=== PATIENT | male | born 1955 | race Caucasian/White ===

== ENCOUNTER 2024-06-22 08:14 | Day surgery (SDC) | payer OTHER, SELFPAY ==
--- NOTE | 2024-06-10 07:54 | HPS.HSE ---
Family Physician
-
Family Physician: NO INTERVIEW UNKNOWN
Chief Complaint
-
Abnormal stress test. Coronary artery disease.
History of Present Illness
The patient is a 69 year old male presenting today with a history of coronary artery disease. The patient had a Cypher stent placed in the first diagonal branch in 2005 due to obstructive coronary artery disease. A repeat cardiac
catheterization in 2018 demonstrated a widely patent large first diagonal stent and multivessel coronary artery disease with medical therapy recommended. Given his medical history, his routine data warehousing engineer, Dr. Frederick Garibay, suggested in
May 2024 that he undergo a repeat stress test. His stress test on June 06, 2024 revealed a large area of ischemia in the anterolateral segment. With this finding, it is recommended he proceed with left cardiac catheterization for further
assessment. He denies any current complaints today such as chest pain, shortness of breath, nausea, vomiting, diarrhea, lightheadedness, dizziness, cough, sore throat, or fever.
Medical History
Past Medical History
Past Medical History: Reports Other
Additional Past Medical History:
1. Abnormal stress test.
2. Coronary artery disease, status post PCI with Cypher stent to first diagonal 2005; on Aspirin.
3. Hypertension.
4. Dyslipidemia.
5. Sinus tachycardia, pharmacological therapy with Metoprolol Succinate.
4. Non-insulin dependent diabetes.
5. Irritable bowel syndrome with diarrhea.
6. Osteoarthritis, status post right total knee arthroplasty 2021.
7. Degenerative disc disease.
8. Nocturia.
9. Hyperbilirubinemia.
10. Mildly elevated transaminases.
11. Obesity, BMI 35.2.
Past Surgical History: Reports Other
Additional Past Surgical History:
1. PCI with Cypher stent to first diagonal.
2. Cardiac catheterization.
3. Right total knee arthroplasty.
4. Left shoulder surgery.
5. Right knee meniscus repair.
6. Knee bursa excision.
7. Ankle fracture repair.
8. Bilateral inguinal hernia repair.
9. Umbilical hernia repair.
10. Tonsillectomy.
Social History
Tobacco: Non-smoker
Alcohol: None
Living: Other (He lives with his girlfriend Jenny in a 2 story home. )
Family History
Family History: Not pertinent
Allergies / Home Medications
Allergy/Medication List:
Home medications:
1. Amlodipine 10 mg p.o. daily.
2. Aspirin 81 mg p.o. daily.
3. Cetirizine 10 mg p.o. daily as needed.
4. Cholecalciferol 100 mcg p.o. daily.
5. Trulicity 3 mg subcutaneous weekly.
6. Jardiance 25 mg p.o. daily.
7. Glimepiride 4 mg p.o. at noon.
8. Ibuprofen 200-400 mg daily as needed.
9. Vascepa 2 grams p.o. twice a day.
10. Magnesium 2 capsules p.o. twice a day.
11. Metformin 500 mg p.o. every evening.
12. Metoprolol Succinate 100 mg p.o. at bedtime.
13. One a day multivitamin 1 tablet p.o. at noon.
14. Ramipril 10 mg p.o. twice a day.
15. Rosuvastatin 40 mg p.o. daily.
Allergies: Pollen.
Review of Systems
-
A 12 point ROS was completed and negative except as noted: Yes
Physical Exam
Vital Signs
Blood pressure 132/81. Heart rate 86. Respirations 18. Pulse ox 97% on room air.
Height 5 feet, 11 inches. Weight 114.4 kg. BMI 35.2.
Physical Exam
General: Well Developed, Well Nourished and No Apparent Distress
HEENT: NormoCephalic, Moist mucous membranes, Atraumatic and PERRLA
Respiratory: Clear
Cardiac: Regular Rhythm
GI: Soft, Non Tender, Non Distended and Other (Obese. )
Musculoskeletal: Normal Gait & Station
Neuro: AO x 3 and Nonfocal/grossly intact
Laboratory Results
-
DIAGNOSTIC STUDIES as of 06/10/2024: White blood cell count 6.5. Hemoglobin 15.6. Platelet count 178,000. Sodium 140. Potassium 4.6. BUN 12. Creatinine 0.6. Glucose 207. Calcium 9.4. Total bilirubin 2.2. AST 62. ALT 56. Albumin 4.6.
EKG 06/10/2024: Normal sinus rhythm.
Stress test 06/06/2024: Perfusion images are abnormal and consistent with ischemia. The overall test suggests a large area of moderate ischemia in the anterolateral segment. Myocardial flow reverse is abnormal. Coronary artery flow is severely
reduced. The left ventricular ejection fraction is normal (66%) and decreases to 64% with stress. There is mild calcification in the proximal descending aorta, dense calcification throughout the LAD, moderate calcification in the mid-LCx, and mild
calcification in the mid-distal RCA.
Impression/Plan
-
IMPRESSION/PLAN:
1. Abnormal stress test and coronary artery disease: The patient is in need of a left cardiac catheterization with Dr. Papa Lloyd on 06/22/2024. The benefits and risks of the procedure have been explained to the patient. The patient understands
these risks and wishes to proceed. He is aware to continue his Aspirin daily up to and including the day of his procedure.
[2024-06-10 12:18] VITALS: BMI 35.2
[2024-06-10 13:17] LABS: % Basophils 0.8 % (0-2); % Eosinophils 2.9 % (0-6); % Immature Granulocytes 0.6 % (0-0.5); % Lymphocytes 22.5 % (20.5-51.1); % Monocytes 12.4 % (1.7-9.3); % Neutrophils 60.8 % (42.2-75.2); Absolute Basophils 0.1 10^3/uL (0-0.2); Absolute Eosinophils 0.2 10^3/uL (0-0.7); Absolute Lymphocytes 1.5 10^3/uL (1.2-3.4); Absolute Monocytes 0.8 10^3/uL (0.1-0.6); Hematocrit 45.3 % (39.0-52.0); Hemoglobin 15.6 g/dL (13.0-18.0); Mean Corp Hgb Conc. 34.4 g/dL (33.0-37.0); Mean Corpuscular Hgb 31.6 pg (27.0-31.0); Mean Corpuscular Volume 91.7 fL (80.0-94.0); Mean Platelet Volume 10.2 fL (7.4-10.4); Nucleated Red Blood Cells % 0 % (-); Platelet Count 178 10^3/uL (130-400); Red Blood Cell Count 4.94 10^6/uL (4.70-6.10); Red Cell Dist. Width 13.1 % (11.5-14.5); White Blood Cell Count 6.5 10^3/uL (4.8-10.8)
[2024-06-10 15:31] LABS: ALT (SGPT) 56 U/L (0-50); AST (SGOT) 62 U/L (17-59); Albumin 4.6 g/dl (3.5-5.0); Alkaline Phosphatase 64 U/L (38-126); Blood Urea Nitrogen 12 mg/dl (9-20); Calcium 9.4 mg/dl (8.4-10.2); Carbon Dioxide 24 mmol/L (22-30); Chloride 102 mmol/L (98-107); Estimated Creatinine Clearance > 125 ml/min; Glucose 207 mg/dl (70-99); Potassium 4.6 mmol/L (3.5-5.1); Sodium 140 mmol/L (135-145); Total Bilirubin 2.2 mg/dl (0.2-1.3); Total Protein 7.9 g/dl (6.3-8.2); eGFR > 60.00
[2024-06-22] VITALS (9 sets, daily range): BP systolic 141–147; BP diastolic 81–88; BMI 35.1
[2024-06-22] MEDS: LOW STRENGTH ASPIRIN 81 MG PO (09:15)
[2024-06-22 09:18] LABS: Glucose - Point of Care 219 mg/dl (70-99)
[2024-06-22] MEDS: NSS 1000 IV (12:45)
--- NOTE | 2024-06-22 13:08 | ITS.CL.CATH ---
Knitted Garment Finisher - Catheterization
Cardiac Catheterization
Procedure Report:
CARDIAC CATHETERIZATION REPORT
Date of Procedure: 06/22/2024
Referring: Frederick Garibay D.O.
INDICATION: Known coronary artery disease, abnormal stress test.
PROCEDURE:
1. Left heart catheterization.
2. Coronary angiography.
ACCESS:
6 Salvadorean right radial artery.
CATHETERS:
1. 5 Salvadorean JR4.
2. 5 Salvadorean JL 3.5.
HEMODYNAMIC DATA
Weight (kg): 114.0
AO (s/d/x, mmHg): 120/70/95
LV (s/x mmHg): 120/11
LEFT VENTRICULOGRAPHY: Not performed.
CORONARY ANGIOGRAPHY
Dominance: Right.
Left Main: Normal size, bifurcating vessel. There is no coronary artery disease.
LAD: Normal size vessel giving rise to 1 large diagonal. The vessel is densely calcified in the proximal and midportion. A patent stent is observed in the proximal diagonal. There is at least a 60% tapering of the proximal vessel as it
approaches D1. There is a napkin ring, 80% lesion immediately after the origin of D1, followed by a 70% lesion approximately 12 mm distal. There is another 60-70% lesion in the distal mid LAD.
Ramus: Congenitally absent.
Circumflex: Normal size, nondominant vessel giving rise to 1 significant marginal before terminating as a left posterolateral branch. There is an 80% lesion in the proximal margin of OM1.
RCA: Normal size, dominant vessel. The vessel is chronically totally occluded at its proximal margin. The RPDA and distal RCA are supplied by robust collaterals from the LAD/septal perforators.
INTERVENTION(S)
None.
Closure Device: Vascular band.
Radiation (mGy): 295.09
DAP (cm2.Gy): 19.6570
Fluoroscopy time (minutes): 2.1
Sedation time (minutes): 21
CONCLUSIONS
1. Right dominant circulation with a 60% tapering of the densely calcified LAD as it approaches D1, a napkin ring, 80% lesion immediately after the origin of D1, a 70% lesion in the mid LAD followed by a 60-70% lesion in the distal mid LAD, and 80%
lesion in the proximal margin of OM1 and a chronic total occlusion of the proximal RCA with robust collaterals from the LAD/septal perforators to the RPDA/distal RCA.
2. Normal filling pressures (LVEDP = 11 mmHg at 114.0 kg).
RECOMMENDATIONS:
1. Expectant management after cardiac catheterization via right radial approach.
2. Limited weight bearing on the right for one week.
3. Discussion with CT surgery and primary cardiology regarding optimal strategy, including medical management, percutaneous revascularization or surgical revascularization. His low symptom burden lends itself to medical management, though it is
possible he may have impaired anginal warning system.
4. Aggressive secondary prevention with high-dose, high potency statin as well as icosapent ethyl. Goal LDL <55, triglycerides <150.
Copy to: Eleni Junior.O., Jhoana Rodas D.O.
Papa Lloyd, DO, FACC, FACP
[2024-06-22 13:29] LABS: Glucose - Point of Care 177 mg/dl (70-99)
== END 2024-06-22 15:35 | disposition home or self-care (01) ==
LOC: CATH 08:14
PROVIDERS: ATTENDING PHYSICIAN Internal Medicine Cardiovascular Disease; FAMILY PHYSICIAN Family Medicine; OTHER PHYSICIAN Internal Medicine Cardiovascular Disease
DX: I25.10 Atherosclerotic heart disease of native coronary artery without angina pectoris (principal); R94.39 Abnormal result of other cardiovascular function study; Z95.5 Presence of coronary angioplasty implant and graft; I25.82 Chronic total occlusion of coronary artery; I10 Essential (primary) hypertension; E78.5 Hyperlipidemia, unspecified; E11.9 Type 2 diabetes mellitus without complications; K58.9 Irritable bowel syndrome, unspecified; M19.90 Unspecified osteoarthritis, unspecified site; E66.9 Obesity, unspecified; Z68.35 Body mass index [BMI] 35.0-35.9, adult; Z79.84 Long term (current) use of oral hypoglycemic drugs; Z79.85 Long-term (current) use of injectable non-insulin antidiabetic drugs; Z79.82 Long term (current) use of aspirin
CPT/HCPCS: 36415; 80053; 82962; 85025; 93005; 93458; C1894; Q9967

== ENCOUNTER → 2024-07-12 10:08 | Outpatient (REF) | payer MEDICARE, SELFPAY | LOC: RCS 10:08 | PROVIDERS: ATTENDING PHYSICIAN Thoracic Surgery (Cardiothoracic Vascular Surgery); FAMILY PHYSICIAN Family Medicine | DX: I25.10 Atherosclerotic heart disease of native coronary artery without angina pectoris (principal); Z01.818 Encounter for other preprocedural examination | CPT/HCPCS: 71250; 93306 ==

== ENCOUNTER 2024-07-25 06:43 | Inpatient (IN) | payer MEDICARE, SELFPAY ==
[2024-07-21 08:12] VITALS: BMI 34.9
[2024-07-21 08:51] LABS: % Basophils 0.9 % (0-2); % Eosinophils 3.3 % (0-6); % Immature Granulocytes 0.5 % (0-0.5); % Lymphocytes 22.3 % (20.5-51.1); % Monocytes 13.7 % (1.7-9.3); % Neutrophils 59.3 % (42.2-75.2); Absolute Basophils 0.1 10^3/uL (0-0.2); Absolute Eosinophils 0.2 10^3/uL (0-0.7); Absolute Lymphocytes 1.4 10^3/uL (1.2-3.4); Absolute Monocytes 0.9 10^3/uL (0.1-0.6); Absolute Neutrophils 3.8 10^3/uL (1.4-6.5); Hematocrit 43.1 % (39.0-52.0); Hemoglobin 15.1 g/dL (13.0-18.0); Mean Corpuscular Hgb 31.9 pg (27.0-31.0); Mean Corpuscular Volume 91.1 fL (80.0-94.0); Mean Platelet Volume 10.5 fL (7.4-10.4); Nucleated Red Blood Cells % 0 % (-); Platelet Count 155 10^3/uL (130-400); Red Blood Cell Count 4.73 10^6/uL (4.70-6.10); White Blood Cell Count 6.4 10^3/uL (4.8-10.8)
[2024-07-21 08:59] LABS: Urine Albumin Trace (Neg - Trace); Urine Bilirubin Negative (Negative); Urine Character Clear (Clear); Urine Color Yellow; Urine Glucose 3+ (Negative); Urine Ketone Negative (Negative); Urine Leukocyte Negative (Negative); Urine Nitrite Negative (Negative); Urine Occult Blood Negative (Negative); Urine Urobilinogen Negative (Neg - 1+)
[2024-07-21 09:02] LABS: INR 0.95; PT 13.2 Sec (11.4-14.6)
[2024-07-21 09:03] LABS: APTT 32.1 Sec (23.4-35.0)
[2024-07-21 09:26] LABS: ALT (SGPT) 48 U/L (0-50); AST (SGOT) 45 U/L (17-59); Albumin 4.3 g/dl (3.5-5.0); Alkaline Phosphatase 71 U/L (38-126); Blood Urea Nitrogen 15 mg/dl (9-20); Calcium 8.9 mg/dl (8.4-10.2); Carbon Dioxide 25 mmol/L (22-30); Chloride 101 mmol/L (98-107); Direct Bilirubin 0.2 mg/dl (0.0-0.4); Estimated Creatinine Clearance > 125 ml/min; Glucose 232 mg/dl (70-99); Potassium 4.3 mmol/L (3.5-5.1); Sodium 137 mmol/L (135-145); Total Bilirubin 2.1 mg/dl (0.2-1.3); Total Protein 7.4 g/dl (6.3-8.2); eGFR > 60.00
--- NOTE | 2024-07-21 10:46 | CM ---
Met with Mrs. Hodges and Sonny his significant other abebe Hernandez He states prior to admission he resides with his significant other in a two story home with five steps to enter. He states he has a full flight of steps to get to bedroom/full
bathroom. He states he has a powder room on the first floor. He states prior to admission he was independent with ambulation and adls. He states he has a rolling walker and single point cane at home from his previous knee surgery. He states he
is not using any DME at this time. He states he has a prescription plan. His significant other will be home to assist in his care if needed. The discharge plan is to return home with his significant other and a home visit by the Transitional Care
Nurse when medically stable.
We reviewed pre-op and post -op routine. We reviewed the shower instructions. He has the soap, written instructions and the Cardiothoracic Surgery Educational Booklet. We also reviewed restrictions including sternal precautions and driving
restrictions. We discussed a home visit by the Transitional Care Nurse. He is agreeable to a home visit. The plan is for CABG on Thursday, July 25, 2024.
[2024-07-21 10:47] LABS: Glycohemoglobin (HgbA1c) 10.2 % (4.0-5.6)
[2024-07-25] VITALS (14 sets, daily range): BP systolic 74–136; BP diastolic 44–82; BMI 35.4
[2024-07-25] MEDS: MAGNESIUM OXIDE 500 MG PO (07:36)
[2024-07-25] MEDS: PROTONIX 40 MG PO (07:36)
[2024-07-25] MEDS: LOPRESSOR 25 MG PO (07:36)
[2024-07-25] MEDS: BACTROBAN 2% OINTMENT 1 APPLIC NASAL ×2 (07:37→20:46)
--- NOTE | 2024-07-25 07:55 | PTCARENOTE ---
Pt admitted into [id number] Garcia today; pt confirmed CHG shower x2 and NPO since 07/24/2024 at 1900; pt clipped and prepped; Medication list reviewed and confirmed with pt; family at bedside and updated on plan of day.
[2024-07-25] MEDS: ANCEF 10 IV ×2 (08:00→14:30)
[2024-07-25 08:59] LABS: Urine Albumin Trace (Neg - Trace); Urine Bilirubin Negative (Negative); Urine Character Clear (Clear); Urine Color Yellow; Urine Glucose 3+ (Negative); Urine Ketone Negative (Negative); Urine Leukocyte Negative (Negative); Urine Nitrite Negative (Negative); Urine Occult Blood Trace (Negative); Urine Urobilinogen Negative (Neg - 1+)
[2024-07-25 09:08] LABS: Urine Bacteria Few (Negative); Urine Squamous Cell 0-2 /LPF (Few); Urine White Cell 0-2 /HPF (0-5)
[2024-07-25 09:17] LABS: ACT+ - POC 90 Seconds (82-134)
[2024-07-25 09:18] LABS: B.E. - POC 1.8 mmol/L; Glucose - POC 301 mg/dl (70-99); HCO3 - POC 28 mmol/L (21-28); Hematocrit - POC 40 % PCV (42-52); Hemodilution- POC No; Hemoglobin Calculated - POC 13.8; Ionized Calcium - POC 1.25 mmol/L (1.15-1.33); Lactate - POC 2.07 mmol/L (0.36-0.75); O2 Saturation %Calculated-POC 99.4 % (94-98); PCO2 - POC 46 mmHg (35-48); PO2 - POC 164 mmHg (83-108); Sodium - POC 139 mmol/L (136-145); Specimen Type - POC Arterial; pH - POC 7.39 (7.35-7.45)
[2024-07-25 11:19] LABS: ACT+ - POC 585 Seconds (82-134)
[2024-07-25 11:26] LABS: B.E. - POC -2.6 mmol/L; Glucose - POC 324 mg/dl (70-99); HCO3 - POC 23 mmol/L (21-28); Hematocrit - POC 36 % PCV (42-52); Hemodilution- POC No; Hemoglobin Calculated - POC 12.3; Ionized Calcium - POC 1.17 mmol/L (1.15-1.33); Lactate - POC 2.41 mmol/L (0.36-0.75); O2 Saturation %Calculated-POC 97.7 % (94-98); PCO2 - POC 41 mmHg (35-48); PO2 - POC 104 mmHg (83-108); Potassium - POC 3.9 mmol/L (3.5-5.1); Sodium - POC 140 mmol/L (136-145); Specimen Type - POC Arterial; pH - POC 7.35 (7.35-7.45)
[2024-07-25 11:56] LABS: B.E. - POC 2.3 mmol/L; Glucose - POC 286 mg/dl (70-99); HCO3 - POC 29 mmol/L (21-28); Hematocrit - POC 34 % PCV (42-52); Hemodilution- POC Yes; Hemoglobin Calculated - POC 11.6; Lactate - POC 2.64 mmol/L (0.36-0.75); O2 Saturation %Calculated-POC 99.9 % (94-98); PCO2 - POC 51 mmHg (35-48); PO2 - POC 303 mmHg (83-108); Potassium - POC 4.3 mmol/L (3.5-5.1); Sodium - POC 139 mmol/L (136-145); Specimen Type - POC Arterial; pH - POC 7.36 (7.35-7.45)
[2024-07-25 12:00] LABS: ACT+ - POC 510 Seconds (82-134)
--- NOTE | 2024-07-25 12:34 | CM ---
Chart reviewed. Patient is in the OR today. Patient is independent of ADLS, lives with his S.O in a 2 STH, 5 [address] FELIPE, 0 DME but has a SPC and RW at home if needed. Plan is for the patient to return home with CT Transitional RN. CM to follow
[2024-07-25 12:36] LABS: B.E. - POC 1.1 mmol/L; Glucose - POC 288 mg/dl (70-99); HCO3 - POC 27 mmol/L (21-28); Hematocrit - POC 32 % PCV (42-52); Hemodilution- POC Yes; Hemoglobin Calculated - POC 10.8; Ionized Calcium - POC 1.13 mmol/L (1.15-1.33); Lactate - POC 2.97 mmol/L (0.36-0.75); O2 Saturation %Calculated-POC 99.8 % (94-98); PCO2 - POC 44 mmHg (35-48); PO2 - POC 249 mmHg (83-108); Potassium - POC 4.4 mmol/L (3.5-5.1); Sodium - POC 139 mmol/L (136-145); Specimen Type - POC Arterial; pH - POC 7.38 (7.35-7.45)
[2024-07-25 12:38] LABS: ACT+ - POC 454 Seconds (82-134)
[2024-07-25 13:17] LABS: B.E. - POC 1.6 mmol/L; Glucose - POC 283 mg/dl (70-99); HCO3 - POC 28 mmol/L (21-28); Hematocrit - POC 35 % PCV (42-52); Hemodilution- POC Yes; Hemoglobin Calculated - POC 12.1; Ionized Calcium - POC 1.15 mmol/L (1.15-1.33); Lactate - POC 3.78 mmol/L (0.36-0.75); O2 Saturation %Calculated-POC 99.7 % (94-98); PCO2 - POC 49 mmHg (35-48); PO2 - POC 202 mmHg (83-108); Potassium - POC 3.9 mmol/L (3.5-5.1); Sodium - POC 142 mmol/L (136-145); Specimen Type - POC Arterial; pH - POC 7.36 (7.35-7.45)
[2024-07-25 13:18] LABS: ACT+ - POC 519 Seconds (82-134)
[2024-07-25 13:48] LABS: ACT+ - POC 436 Seconds (82-134)
[2024-07-25 13:48] LABS: B.E. - POC -4.4 mmol/L; Glucose - POC 220 mg/dl (70-99); HCO3 - POC 22 mmol/L (21-28); Hematocrit - POC 36 % PCV (42-52); Hemodilution- POC Yes; Hemoglobin Calculated - POC 12.3; Ionized Calcium - POC 1.02 mmol/L (1.15-1.33); Lactate - POC 4.65 mmol/L (0.36-0.75); O2 Saturation %Calculated-POC 99.7 % (94-98); PCO2 - POC 43 mmHg (35-48); PO2 - POC 211 mmHg (83-108); Potassium - POC 4.1 mmol/L (3.5-5.1); Sodium - POC 139 mmol/L (136-145); Specimen Type - POC Arterial; pH - POC 7.31 (7.35-7.45)
[2024-07-25 14:13] LABS: ACT+ - POC 498 Seconds (82-134)
[2024-07-25 14:13] LABS: B.E. - POC 2.6 mmol/L; Glucose - POC 216 mg/dl (70-99); HCO3 - POC 28 mmol/L (21-28); Hematocrit - POC 37 % PCV (42-52); Hemodilution- POC Yes; Hemoglobin Calculated - POC 12.6; Ionized Calcium - POC 1.08 mmol/L (1.15-1.33); Lactate - POC 5.11 mmol/L (0.36-0.75); O2 Saturation %Calculated-POC 99.9 % (94-98); PCO2 - POC 46 mmHg (35-48); PO2 - POC 264 mmHg (83-108); Potassium - POC 3.8 mmol/L (3.5-5.1); Sodium - POC 147 mmol/L (136-145); Specimen Type - POC Arterial
[2024-07-25 14:47] LABS: ACT+ - POC 104 Seconds (82-134)
[2024-07-25 14:50] LABS: Glucose - POC 188 mg/dl (70-99); HCO3 - POC 26 mmol/L (21-28); Hematocrit - POC 32 % PCV (42-52); Hemodilution- POC Yes; Hemoglobin Calculated - POC 10.8; Ionized Calcium - POC 1.03 mmol/L (1.15-1.33); Lactate - POC 4.41 mmol/L (0.36-0.75); O2 Saturation %Calculated-POC 95.5 % (94-98); PCO2 - POC 44 mmHg (35-48); PO2 - POC 82 mmHg (83-108); POC Comment POST; Potassium - POC 3.3 mmol/L (3.5-5.1); Sodium - POC 145 mmol/L (136-145); Specimen Type - POC Arterial; pH - POC 7.37 (7.35-7.45)
--- NOTE | 2024-07-25 15:06 | W.CVOR.SURPR ---
CVOR Surgeon Immed Pre Op
-
I have examined this patient prior to performance of the scheduled procedure.
The patient's condition is unchanged from the time of the dictated/written History and
Physical and the patient is able to undergo the scheduled procedure.
--- NOTE | 2024-07-25 15:06 | W.IMMPOSTOP ---
Addendum entered and electronically signed by Temo Garcia MD 07/25/24 16:14:
[id number]
Original Note:
Surgical Immed Post Op Note
-
CARDIAC SURGERY OPERATIVE NOTE:
Preoperative Dx:
MVCAD
Sinus tachycardia
NIDDM
IBS w/ diarrhea
Nocturia
DJD/OA s/p R TKA (2021)
Hyperbilirubinemia & mild transaminitis
Obesity (BMI 35.4)
Postoperative Dx:
Same
Procedures:
1) Median sternotomy
2) Takedown of ROXANNE (narrow pedicle)
3) Endoscopic harvest/prep of B/L LE GSVs
4) CABG x 5 (ROXANNE to LAD, GSV to D1, GSV to OM1, GSV to OM2 [upper branch], GSV to RPDA)
Surgeon:
Temo Garcia M.D.
Assistants:
Godwin CutlerA.-CMauricio; reading assistant throughout
Ramila Arguelles P.A.-C.; endoscopic harvest/prep of B/L LE GSVs
Anesthesia:
Jennifer Garibay, C.R.N.A., Lexi Baldwin, C.R.N.A.
Franck Adams M.D.
Perfusion:
Ericka Jo, CMauricioC.P. and Chong Khalil CMauricioCMauricioP.
XC: 112min, CPB: 162min
Findings:
The ROXANNE was a healthy conduit w/ ELD 2.75mm, very brisk blood flow
The GSVs were healthy appearing conduits w/ ELD ranging from 2.75-3.5mm
LAD was visible on the epicardial surface, scattered calcifications, anastomosis at junction between middle and distal third, normal watt, ELD 2.75mm, very brisk flow observed
D1 was visible on the epicardial surface, scattered calcifications, normal watt at anastomosis, ELD 2.75mm
OM1 was initially visible on the epicardial surface, then took a very shallow intramyocardial course under 1-2mm of myocardium, scattered calcifications, normal watt at anastomosis, ELD 3.00mm
OM2 [upper branch] was visible on the epicardial surface, scattered calcifications, normal watt at anastomosis, ELD 3.00mm
RPDA was visible on the epicardial surface, scattered calcifications, normal watt at anastomosis, ELD 2.25mm
Excellent flow in all grafts on transit-time U/S flow probe assessment pre- and post-protamine administration
Post-MARICHUY: LVEF 65-70% w/o RWMA, no significant VHD
Implants:
CT x 4 (B/L pleural, inferior mediastinal, superior mediastinal)
Sternal wires x 8
Sternal 'X' plate x 2 (8 - 14mm and 8 - 12mm screws)
Complications:
None
Condition:
90 isoelectric sinus (0.3/0.3), 109/60, CVP 14, 96%
GTTS: insulin 1, levophed 1, precedex 0.5
Stable/guarded to CVICU
--- NOTE | 2024-07-25 15:12 | CON.INTV ---
Consultation
Consultation Request
Date/Time Consultation Requested: 07/25/2024 - 144
Date/Time Consultation Performed: 07/25/2024 - 1508
Requesting Provider: Ramila Arguelles PA-C
Performing Provider: Dr. Pitts
Reason for Consultation: s/p CABG
Medical History
-
Chief Complaint: Elective CABG
History of Present Illness:
69-year-old male non-smoker with a past medical history of CAD with history of stent, hypertension, dyslipidemia, DM type II, and morbid obesity who presents with elective CABG. Patient known to Dr. Garcia with cardio thoracic surgery, last visit
on 06/27/2024. He had a recent left heart catheterization on 06/22/2024 showing multivessel disease with normal LVEDP at [address] chest on 07/12/2024 showed no acute findings in the chest. PFTs on 07/21/2024 showed mild restriction
with no obstruction and normal gas exchange capacity. The risks and benefits of surgical revascularization were discussed and he has agreed to this procedure. Today he underwent CABG x 5, and was transferred to the CVICU postoperatively with
bilateral pleural chest tubes and mediastinal chest tubes x 2. Hide And Skin Processing Worker service is consulted for additional management/recommendations.
When I saw the patient, he was on a SBT on pressure support 5/5cmH2O at 40% FiO2. His PIP was 11 cmH2O, VTe 555 mL and breathing at 15 breaths/min. He is currently on Precedex at 0.3mcg/kg/hr, Cardene and 1mg/hr and insulin at 6 units/hr. Current
heart rate 89, BP via left radial A-line: 124/65, CVP: 12, BP via NIBP: 130/82 and saturating 92%.
PMHx: coronary artery disease, hypertension, dyslipidemia, type II diabetes, hyperbilirubinemia, nocturia, sinus tachycardia, chronic CK elevation, obesity, cypher diagonal stent
PSHx: inguinal hernia repair, bilateral umbilical hernia repair, knee surgery, remove bursa 1993, Ankle Fracture repair, tonsillectomy, left shoulder repair 10/16/2010, right knee meniscus 06/16/2014, right knee replacement 05/2022, heart stent
Past Medical History
Past Medical History: Other (Above as per HPI)
Past Surgical History: Other (Above as per HPI)
Social History
Tobacco: Non-smoker
Alcohol: None
Drug: None
Personal:
Living: Other (Lives with girlfriend)
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
Family History
Family History: CAD (Father + mother: History of MA), Cancer (Father: Lung cancer) and Other (Father: Pacemaker)
Allergies / Home Medications
Allergies
Allergy/AdvReac Type Severity Reaction Status Date / Time
pollen extracts Allergy Sneezing, Verified 07/19/24 10:38
rhinitis,
dry eyes
Home Medications
�Medication �Instructions �Recorded �Confirmed �Last Taken �Type
aspirin 81 mg chewable tablet 81 mg PO DAILY Blood Clot 11/26/18 07/25/24 07/23/24 08:00 History
(Jason Chewable Low Dose Aspirin) Prevention/Tx
cetirizine 10 mg tablet 10 mg PO DAILY PRN allergies 11/26/18 07/25/24 11/24/18 09:00 History
glimepiride 4 mg tablet 4 mg PO DAILY@1200 Diabetes 11/26/18 07/25/24 07/22/24 08:00 History
ibuprofen 200 mg tablet (Advil) 200 - 400 mg PO DAILYPRN PRN pain 11/26/18 07/25/24 06/21/24 12:00 History
multivit with minerals-folic 1 ea PO DAILY@1200 Supplement 11/26/18 07/25/24 07/18/24 08:00 History
acid-lycopene 0.4 mg-600 mcg
tablet (One Daily For Men)
amlodipine 10 mg tablet 10 mg PO DAILY Blood Pressure 06/09/24 07/25/24 07/23/24 08:00 History
cholecalciferol (vitamin D3) 50 100 mcg PO DAILY Supplement 06/09/24 07/25/24 07/23/24 08:00 History
mcg (2,000 unit) capsule (Vitamin
D3)
empagliflozin 25 mg tablet 25 mg PO DAILY Diabetes 06/09/24 07/25/24 07/18/24 08:00 History
(Jardiance)
icosapent ethyl 1 gram capsule 2 g PO BID High Cholesterol 06/09/24 07/25/24 07/18/24 08:00 History
(Vascepa)
magnesium 2 cap PO BID Electrolyte Repletion 06/09/24 07/25/24 07/18/24 08:00 History
metoprolol succinate 100 mg 100 mg PO TID Heart 06/09/24 07/25/24 07/23/24 21:00 History
tablet,extended release 24 hr Disease/Condition
ramipril 10 mg capsule 10 mg PO BID Blood Pressure 06/09/24 07/25/24 07/22/24 08:00 History
rosuvastatin 40 mg tablet 40 mg PO DAILY High Cholesterol 06/09/24 07/25/24 07/22/24 20:00 History
semaglutide (weight loss) 0.25 0.25 mg SC MARTINEZ Diabetes 06/22/24 07/25/24 07/18/24 08:00 History
mg/0.5 mL subcutaneous pen
injector (Wegovy)
metformin 500 mg tablet,extended 500 mg PO QPM Diabetes 07/25/24 07/25/24 07/18/24 08:00 History
release 24 hr
Review of Systems
-
Unable to Obtain full review of systems at this time due to: Patient Intubation
Vitals / Labs / Diagnostic Testing
Vital Signs
Temp Pulse Resp BP Pulse Ox
97.7 F 93 16 157/91 99
07/25/24 07:30 07/25/24 07:36 07/25/24 07:30 07/25/24 07:36 07/25/24 07:30
Microbiology
07/21/24 08:23 Nose MRSA Screen - Final
No Methicillin Resistant Staphylococcus aureus isolated.
Diagnostic Testing:
Physical Exam
-
HEENT: Normocephalic, Anicteric and Other (ETT in place)
Cardiovascular: S1/S2 and Peripheral Edema (negative)
Respiratory: Wheeze (negative), Rales (negative), Rhonchi (negative), Non-Labored Respirations and Other (Mechanical breath sounds heard bilaterally)
GI: Soft, Distended (Abdominal obesity), Non Tender and Normal Bowel Sounds
Neurology: Tremors (negative) and Other (Sedated)
Skin: Warm and Dry
General: Respiratory Distress (negative), Comfortable, Fever (negative), Chills (negative) and Sweats (negative)
Assessment
-
Assessment: 69-year-old male non-smoker with a past medical history of CAD with history of stent, hypertension, dyslipidemia, DM type II, and morbid obesity who presents with elective CABG. Patient known to Dr. Garcia with cardio thoracic surgery,
last visit on 06/27/2024. He had a recent left heart catheterization on 06/22/2024 showing multivessel disease with normal LVEDP at [address] chest on 07/12/2024 showed no acute findings in the chest. PFTs on 07/21/2024 showed mild
restriction with no obstruction and normal gas exchange capacity. The risks and benefits of surgical revascularization were discussed and he has agreed to this procedure. Today he underwent CABG x 5, and was transferred to the CVICU
postoperatively with bilateral pleural chest tubes and mediastinal chest tubes x 2. Hide And Skin Processing Worker service is consulted for additional management/recommendations.
Chronic conditions CUSHION BUILDER: coronary artery disease, hypertension, dyslipidemia, type II diabetes, hyperbilirubinemia, nocturia, sinus tachycardia, chronic CK elevation, obesity, cypher diagonal stent
Impression:
#Multivessel CAD s/p CABG x 5 (OR date: 07/25/2024)
#Acute anemia due to above
#Acute thrombocytopenia due to above
#NIDDM (uncontrolled � HbA1c: 10.21 07/21/2024)
#IBS with diarrhea
#Obesity (BMI: 35.4)
#History of mild hyperbilirubinemia
Plan:
Ventilator settings reviewed
FiO2 will be weaned to maintain SpO2 >90-94%
Minute ventilation will be adjusted
Arterial blood gases will be monitored
Spontaneous breathing trial will be attempted with hopeful extubation after anesthesia/sedation wear off
His pCO2 was slightly elevated at 50 so if this remains elevated then would extubate him to BiPAP 12/5 for at least 1-2 hours, and continue with BiPAP with sleep while trending blood gas again in AM
prn nebulized bronchodilators - not currently bronchospastic
Pulmonary artery catheter parameters will be followed
Pressors/antihypertensive/inotropes/diuretics will be provided as needed
Maintain MAP>65
Replete electrolytes with K>4, Mg>2
Monitor chest tube output (bilateral pleural chest tubes + mediastinal chest tubes x 2)
Monitor hemoglobin
Monitor platelet count and coags
Transfuse blood products as needed to maintain Hb>7g/dL, plt>50k (given post-operative status)
CT surgery managing chest tubes
Monitor blood sugar to maintain euglycemia with goal BG 140-180
Insulin drip per protocol
Trend LFTs and T bili
Aspiration precautions
VAP prevention protocol
DVT prophylaxis
Early nutrition
Early mobilization
Critical care statement: A total of 37 minutes of critical care time was provided for this patient today. This includes management of ventilator, spontaneous breathing trial, arterial blood gases, pressors, of unstable vital signs, evaluation of the
patient at bedside, reviewing the patient's pertinent medical records including radiographs, microbiology, laboratory evaluations, and discussion with primary team and critical care nursing.
Data:
CXR 07/25/2024:
1. Postoperative from CABG surgery with an endotracheal tube, right IJ central venous catheter, and bilateral pleural chest tubes in place.
2. Moderately decreased bilateral lung volumes with enlargement of the cardiomediastinal silhouette and mild bilateral perihilar subsegmental atelectasis.
--- NOTE | 2024-07-25 15:48 | W.PN.CD ---
Addendum entered and electronically signed by Neal Thorne MD 07/25/24 17:43:
69 yo male with PMH of CAD admitted following CABG. Remains intubated, weaning from vent. Exam with RRR, no murmurs, trace LE edema. Tele: SR, no arrhythmia. MARICHUY: EF 65-70%. Hopeful for extubation this evening.
Original Note:
Today's Communication / Plan
-
Postoperative management per CT surgery
Follow telemetry
Impression / Plan
-
IMPRESSION/PLAN: 69M with coronary artery disease (PCI, 2005), hypertension, dyslipidemia, type 2 diabetes mellitus, and sinus tachycardia who had an abnormal stress test which prompted cardiac catheterization which demonstrated multivessel coronary
artery disease. He presents for CABG.
Primary tool analyst: Dr. Frederick Garibay (formerly Dr. Degroot)
CAD s/p CABG x 5 (ROXANNE to LAD, GSV to D1, GSV to OM1, GSV to OM2 [upper branch], GSV to RPDA) by Dr. Garcia on 07/25/2024
-EKG sinus rhythm with RBBB, RBBB is new
-Post-MARICHUY: LVEF 65-70% w/o RWMA, no significant VHD
-Telemetry stable
HTN, on Levophed, follow
Hypertriglyceridemia
-Fasting lipid panel in a.m.
-On Vascepa and rosuvastatin 40 mg, goal LDL <55, triglycerides 996 in May & Direct LDL 30
Type II DM, uncontrolled, hemoglobin A1c 10.2%
Obesity, BMI 35, he would benefit from weight loss, on GLP-1
Physical Exam
Vital Signs/Labs
Vital Signs
Temp Pulse Resp BP Pulse Ox
97.7 F 93 16 157/91 99
07/25/24 07:30 07/25/24 07:36 07/25/24 07:30 07/25/24 07:36 07/25/24 07:30
07/24/24 07/25/24 07/26/24
06:59 06:59 06:59
Actual Weight 115 kg
PT 13.2 Sec (11.4-14.6) 07/21/24 08:23
INR 0.95 07/21/24 08:23
APTT 32.1 Sec (23.4-35.0) 07/21/24 08:23
Physical Exam
Constitutional: No acute distress and Comfortable
EENT: Anicteric and Moist mucous membranes
Cardiovascular: Rhythm & rate is regular and Pedal edema is absent
Respiratory: Lungs clear to auscul. and Other (Mechanical ventilation)
GI: Soft, Distention absent, Flat and Normal bowel sounds
Neuro/Psych: Other (Sedated)
Other: Skin (Warm and dry without edema)
Data Reviewed
-
Date of Service: July 25, 2024
[2024-07-25 15:54] LABS: Glucose - Point of Care 211 mg/dl (70-99)
[2024-07-25 16:01] LABS: B.E. 1.3 mmol/L; HCO3 27.6 mmol/L (21-28); Ionized Calcium 1.09 mMOL/L (1.15-1.33); PCO2 50 mmHg (35-48); PO2 70 mmHg (83-108); Sodium 139 mMOL/L (136-145); pH 7.35 (7.35-7.45)
[2024-07-25 16:05] LABS: Mixed Venous O2 Saturation 77.2 %
[2024-07-25 16:08] LABS: Hematocrit 34.9 % (39.0-52.0); Hemoglobin 12.5 g/dL (13.0-18.0); Platelet Count 121 10^3/uL (130-400)
[2024-07-25] MEDS: VENTOLIN NEBULES 2.5 MG INH (16:10)
[2024-07-25 16:12] LABS: INR 1.27; PT 16.2 Sec (11.4-14.6)
[2024-07-25 16:20] LABS: Blood Urea Nitrogen 11 mg/dl (9-20); Estimated Creatinine Clearance > 125 ml/min; Glucose 203 mg/dl (70-99); Magnesium 2.8 mg/dl (1.6-2.3)
[2024-07-25] MEDS: DILAUDID 0.5 MG IV ×2 (16:41→23:25)
[2024-07-25] MEDS: NOVOLOG FLEXPEN SC ×2 (16:47)
[2024-07-25] MEDS: NSS 500 IV (16:48)
--- NOTE | 2024-07-25 16:50 | W.PN.UPDATE ---
Update Note
Progress Note Update
IV fluids: 1200
U.O.:� 225
UF:� 2400
Blood:� none
Wires:� None
Inotropes:� none
Pressors:� none
Sedatives:� precedex
�
NEURO: sedated on precedex, pupils +2mm B/L
RESP: #8OT @25cm> 500/100%/14/8. Lungs clear B/L. 2 mediastinal (45cc on arrival) and R/L pleural (60cc on arrival) chest tubes to -20cm suction. Sanguineous drainage
CV: RRR +S1, S2, no S3, no�rub, no murmur. Dermabond to median sternotomy. RIJ w/Slicc
ABD: round, soft, no BS
EXT: no edema, +2/4 DP pulses B/L, no femoral bruit, b/l LE GIBRAN wrap intact; radial A-line intact
: Rolle with clear yellow urine
�
A/P: POD #0 s/p CABG x 5 (ROXANNE to LAD, GSV to D1, GSV to OM1, GSV to OM2 [upper branch], GSV to RPDA)
MARICHUY: EF�LVEF 65-70% w/o RWMA, no significant VHD
- wean and extubate
- Monitor CT and urine output
- Follow up labs and CXR
-Start Cardene for systolic pressures less than 130
- Will start ASA tonight
- EKG pending and will send to cards
- Cards consulted
�
# acute surgical blood loss anemia-expected
- trend CBC
�
�
# T2DM (A1C 10.2)
- insulin infusion x 48h
- resume oral agents when able
-DM management SCHOOL ADMISSIONS REPRESENTATIVE is consulted
#Ventilator dependent respiratory failure (expected)
-Patient arrived to the CVICU with saturations in the high 80s and FiO2 at 100%
-Increase PEEP to 8
-Wean FiO2 for O2 saturations > 90%
-Goal to extubate
-May need BiPAP postextubation
-Trend ABGs
�
# Hyperlipidemia
- resume�statin when tolerating p.o.
-Will check lipid panel tomorrow with a.m. labs due to elevated triglycerides per cardiology
[2024-07-25 17:00] LABS: Glucose - Point of Care 198 mg/dl (70-99)
--- NOTE | 2024-07-25 17:00 | PTCARENOTE ---
Pt received from CVOR at 1555; Sedated and intubated; SR with prolonged QT rhythm on monitor; VSS; +1 right DP, +1 left DP and +2 radial pulses present; Lungs diminished throughout; ETT size 8 positioned and secured at 25 cm right lip; Ventilator
settings SIMV 14/500/8 FiO2 60%; CTx4 to -20 cm wall suction draining bloody drainage - no air leak, tidaling, or crepitus noted; Hypoactive BS; Rolle catheter in place draining clear, yellow urine; Right groin puncture site glued and approximated -
CDI, Sternal Midline Incision glued and approximated - CDI, RLE & LLE wrapped in GIBRAN wrap - CDI; A-line in Left radial artery; all lines zeroed and level; PIVx1 #18 RAC; Insulin/Precedex/Cardene infusing; CXR done at bedside; PA aware; RT in room
and pt placed on CPAP @1645 - see nursing flowsheets for further details; See nursing documentation for further information
[2024-07-25 17:31] LABS: B.E. -1.1 mmol/L; HCO3 23.5 mmol/L (21-28); O2 Saturation % 95.2 % (94-98); PCO2 38 mmHg (35-48); PO2 65 mmHg (83-108)
[2024-07-25 18:04] LABS: Glucose - Point of Care 206 mg/dl (70-99)
--- NOTE | 2024-07-25 19:00 | PTCARENOTE ---
bedside report received from previous RN. pt intubated on SBT. #8 ETT intact, secured at 25 cm right lip. POX 92%. B/L breath sounds present. repeat ABG drawn and sent. pt opens eyes, follows DIMITRIOS grajeda equally. CT x4 intact to -20cm wall suction,
drainage WNL, no air leak present. ST on monitor, HR 110s. B/L radial and DP pulses palpable. heart tones clear. Cardene gtt infusing @ 2.5mg--turned to off. SBP 100s. hypoactive bowel sounds present. insulin gtt infusing per glycemic protocol.
lovelace catheter in place draining clear, yellow urine. all surgical sites stable. left radial A-line intact. RIJ cordis w slic catheter intact, KVOs infusing. CVP ~16. see worklist for full assessment, VS, and interventions.
[2024-07-25 19:01] LABS: Glucose - Point of Care 209 mg/dl (70-99)
[2024-07-25] MEDS: NEURONTIN PO ×3 (19:20→21:10)
[2024-07-25] MEDS: CRESTOR PO (19:20)
[2024-07-25] MEDS: THERAGRAN PO (19:21)
[2024-07-25] MEDS: TYLENOL PO ×2 (19:21→21:10)
[2024-07-25] MEDS: VITAMIN D3 (cholecalciferol) PO (19:21)
[2024-07-25] MEDS: PACERONE PO ×2 (19:21→23:01)
[2024-07-25 19:25] LABS: B.E. -5.8 mmol/L; HCO3 18.5 mmol/L (21-28); Ionized Calcium 1.16 mMOL/L (1.15-1.33); O2 Saturation % 93.8 % (94-98); PCO2 32 mmHg (35-48); PO2 65 mmHg (83-108); Potassium 3.1 mMOL/L (3.5-5.1); pH 7.37 (7.35-7.45)
[2024-07-25 19:32] LABS: Hematocrit 36.9 % (39.0-52.0); Hemoglobin 13.1 g/dL (13.0-18.0); Platelet Count 179 10^3/uL (130-400)
[2024-07-25] MEDS: SODIUM BICARBONATE 50 MEQ IV (19:59)
[2024-07-25] MEDS: CALCIUM GLUCONATE 100 IV (20:00)
[2024-07-25] MEDS: KCL 50 IV (20:00)
[2024-07-25] MEDS: SENOKOT-S PO (20:04)
[2024-07-25 20:19] LABS: Glucose - Point of Care 222 mg/dl (70-99)
[2024-07-25] MEDS: ZOFRAN 4 MG IV (20:47)
[2024-07-25] MEDS: ANCEF 5 IV (20:47)
[2024-07-25] MEDS: ASPIRIN 300 MG RECTAL (20:47)
--- NOTE | 2024-07-25 21:00 | PTCARENOTE ---
ABG reviewed with CT PA. pt hypoxic, POX 88-90%. HR 120s. instructed to place pt back on SIMV. orders received for xopenex inhaler. respiratory at bedside. vent changes made, inhaler administered. POX 91%.
[2024-07-25 21:18] LABS: Glucose - Point of Care 188 mg/dl (70-99)
[2024-07-25] MEDS: NOVOLIN R INSULIN INFUSION 100 IV (21:25)
[2024-07-25 22:27] LABS: Glucose - Point of Care 171 mg/dl (70-99)
--- NOTE | 2024-07-25 22:30 | PTCARENOTE ---
pt placed back on SBT by RT per CT PA. POX 92%.
[2024-07-25 22:57] LABS: Glucose - Point of Care 170 mg/dl (70-99)
[2024-07-25 23:06] LABS: B.E. -1.9 mmol/L; HCO3 22.2 mmol/L (21-28); Ionized Calcium 1.19 mMOL/L (1.15-1.33); O2 Saturation % 95.1 % (94-98); PCO2 35 mmHg (35-48); PO2 65 mmHg (83-108); Potassium 3.6 mMOL/L (3.5-5.1); pH 7.41 (7.35-7.45)
--- NOTE | 2024-07-25 23:15 | PTCARENOTE ---
pt extubated by RT to 6LNC. breathing treatment administered. POX 92%. IS 1500.
--- NOTE | 2024-07-25 23:15 | RESPNOTE ---
PT was extubated at this time and placed on a 6L nasal cannula. PT was suctioned before and after extubation and he stated his name afterwards. PT had to be switched to a 10L midflow due to low o2. PT did several I/S maneuvers, the best being
approx. 1,500 mls. Will continue to monitor resp status.
[2024-07-25] MEDS: XOPENEX HFA 45 MCG INHALER 2 PUFF INH ×2 (23:21→23:22)
[2024-07-25] MEDS: XOPENEX 1.25 MG INHALANT SOLUTION INH (23:22)
[2024-07-26] VITALS (34 sets, daily range): BP systolic 83–142; BP diastolic 59–103; PULSE 106; O2SAT 93; BMI 35.9
--- NOTE | 2024-07-26 | PTCARENOTE ---
pt POX 88%--placed on 10L midflow NC.
[2024-07-26 00:08] LABS: Glucose - Point of Care 135 mg/dl (70-99)
[2024-07-26] MEDS: OFIRMEV 100 IV (00:14)
[2024-07-26] MEDS: ROXICODONE 5 MG PO ×6 (00:15→23:53)
[2024-07-26] MEDS: FLEXERIL 5 MG PO ×2 (00:15→09:23)
[2024-07-26] MEDS: PACERONE 200 MG PO ×4 (00:51→19:47)
[2024-07-26 00:58] LABS: Glucose - Point of Care 130 mg/dl (70-99)
--- NOTE | 2024-07-26 01:08 | W.PN.CT ---
Today's Communication / Plan
-
Plan:
-No major issues overnight. Hemodynamically and neurologically intact
-Pt successfully extubated yesterday 07/25/24 @ 2315. Required nebulizer treatments and midflow O2 @ 10 L post extubation
-Weaned off Cardene gtt overnight, remains on insulin gtt per protocol
-No swan, U/O since OR: 750 mL
-Monitor chest tube output: 2meds 150/240, R/L pleurals 160/280
-AM cxr looks clear, no ptx, mild atelectasis/small left effusion on my review. F/U official report
-HR sinus tachycardia highest at 130's. Baseline sinus tachycardia 120
-Cont. current meds (ASA, Plavix, Vascepa, Amiodarone, Lopressor, insulin gtt, Xopenex)
-D/C'd a-line and SLIC @ 0530
-D/C lovelace catheter @ 0600
-Transfer to tele phase tomorrow when off insulin gtt per protocol. Will consult diabetes education/management TOPPER PACKER (hgb A1C 10.2)
-Maintain cordis
-No temporary PW
-Wean off of O2 as tolerated
-Encourage use of IS
-OOB into chair/Ambulate
Assessment / Plan
-
Assessment:
-S/P Median sternotomy/CABG x 5 (ROXANNE to LAD, GSV to D1, GSV to OM1, GSV to OM2 [upper branch], GSV to RPDA)/Endoscopic harvest/prep of B/L LE GSVs, by Dr. Garcia, 07/25/24, pod#1
-Severe multivessel coronary artery disease
-[place]
-Hx CAD S/P PCI with BASSAM to 2018
-Sinus tachycardia
-New RBBB postop
-LVEF 60-65% per intraop MARICHUY
-Trace - mild TR
-HTN
-HLD (statin intolerance, on Vascepa @ home)
-T2DM (A1C 10.2)
-Class 2 obesity (BMI 35.4)
-Suspected RADHA
-Seasonal allergies
-Chronic elevated CK
-Hx of elevated LFTs
-Irritable bowel syndrome with diarrhea.
-Nocturia.
-Degenerative joint disease/osteoarthritis
-S/P R TKR, 05/2022
-S/p R knee meniscus repair, 06/16/14
-S/p L shoulder repair, 10/16/10
-S/p R ankle fx repair
-S/P removal of right knee bursa, 1993
-S/p bilateral inguinal herniorrhaphy
-S/p umbilical herniorrhaphy
-S/P Tonsillectomy
-Acute postop blood loss/Anemia (stable without blood transfusion)
-Acute postop thrombocytopenia (stable without active bleed)
-Acute postop new RBBB
-Acute postop atelectasis
-Acute postop pulmonary insufficiency
-Acute postop hypovolemia with subsequent hypervolemia
Discussed patient care with: Cardiology, Nursing, Respiratory Therapy, Pharmacy and Care Team
Subjective
Procedure
-S/P Median sternotomy/CABG x 5 (ROXANNE to LAD, GSV to D1, GSV to OM1, GSV to OM2 [upper branch], GSV to RPDA)/Endoscopic harvest/prep of B/L LE GSVs, by Dr. Garcia, 07/25/24
-
Date of Service: July 26, 2024
Pt c/o incisional pain, otherwise feels well
Objective Data
-
PT 16.2 Sec (11.4-14.6) H 07/25/24 15:47
INR 1.27 07/25/24 15:47
APTT 29.0 Sec (23.4-35.0) 07/25/24 15:47
Vital Signs
Vital Signs
Temp Pulse Resp BP Pulse Ox
100.7 F H 114 13 96/71 95
07/26/24 01:00 07/26/24 01:00 07/26/24 01:00 07/26/24 00:00 07/26/24 01:00
CT Intake/Output/Weight
07/25/24 07/25/24 07/26/24
06:59 18:59 06:59
Intake Total 36 / 435 399 / 435
Output Total 435 / 940 505 / 940
Balance -399 / -505 -106 / -505
SaO2: 95 (6L)
Physical Exam
-
General: Awake, Oriented and AOx3
Cardiovascular: Regular rate & rhythm (sinus tachycardia), No Murmurs and No Gallop
Respiratory: Decreased Breath Sounds (at bases, otherwise clear )
Sternum: Stable
Incision: Clean, Dry, Intact and Dressing Intact
Extremities: Other (+trace edema)
Data Reviewed
-
Lab Results: Results Reviewed
Medications: Active Meds Reviewed
Chest X-Ray: Report Reviewed and Image Reviewed
ECG: Report Reviewed and Image Reviewed
[2024-07-26 02:15] LABS: Glucose - Point of Care 112 mg/dl (70-99)
--- NOTE | 2024-07-26 03:00 | PTCARENOTE ---
no acute changes. pt AAOx4. ST on monitor, HR 110s. POX 96% on 10L midflow NC. CT output and UO WNL. insulin gtt maintained per protocol. all surgical sites stable. pt sleeping between care.
[2024-07-26 03:58] LABS: Glucose - Point of Care 81 mg/dl (70-99)
[2024-07-26] MEDS: ANCEF 5 IV ×2 (04:05→12:54)
[2024-07-26] MEDS: DILAUDID 0.5 MG IV ×2 (04:06→19:48)
--- NOTE | 2024-07-26 04:15 | PTCARENOTE ---
AM labs drawn and sent. EKG done.
[2024-07-26 04:30] LABS: Hematocrit 34.9 % (39.0-52.0); Hemoglobin 12.5 g/dL (13.0-18.0); Mean Corp Hgb Conc. 35.8 g/dL (33.0-37.0); Mean Corpuscular Hgb 32.4 pg (27.0-31.0); Mean Corpuscular Volume 90.4 fL (80.0-94.0); Mean Platelet Volume 10.2 fL (7.4-10.4); Platelet Count 154 10^3/uL (130-400); Red Blood Cell Count 3.86 10^6/uL (4.70-6.10); Red Cell Dist. Width 13.4 % (11.5-14.5); White Blood Cell Count 13.1 10^3/uL (4.8-10.8)
[2024-07-26 05:00] LABS: Blood Urea Nitrogen 16 mg/dl (9-20); Calcium 8.7 mg/dl (8.4-10.2); Carbon Dioxide 30 mmol/L (22-30); Chloride 105 mmol/L (98-107); Estimated Creatinine Clearance 116 ml/min; Glucose 78 mg/dl (70-99); HDL Cholesterol 32 mg/dl; Magnesium 2.4 mg/dl (1.6-2.3); Potassium 4.3 mmol/L (3.5-5.1); Sodium 141 mmol/L (135-145); Total Cholesterol 294 mg/dl (50-199); eGFR > 60.00
[2024-07-26 05:10] LABS: LDL Cholesterol, Direct < 30 mg/dl
[2024-07-26 05:17] LABS: Triglyceride 1000 mg/dl (10-149)
[2024-07-26] MEDS: CALCIUM GLUCONATE 100 IV (05:23)
[2024-07-26 05:48] LABS: Glucose - Point of Care 169 mg/dl (70-99)
[2024-07-26] MEDS: TYLENOL 1000 MG PO ×3 (05:54→19:47)
--- NOTE | 2024-07-26 06:30 | PTCARENOTE ---
RIJ slic catheter and left radial art line d/c'd per orders. lovelace catheter d/c'd. pt assisted oob to chair without difficulty. VSS. ST 110s. POX 94% on 6LNC.
[2024-07-26] MEDS: XOPENEX 1.25 MG INHALANT SOLUTION INH ×3 (07:01→19:20)
[2024-07-26] MEDS: NOVOLIN R INSULIN INFUSION 100 IV ×2 (07:27→15:07)
[2024-07-26] MEDS: MAGNESIUM OXIDE PO ×2 (07:53→22:42)
--- NOTE | 2024-07-26 08:00 | PTCARENOTE ---
pt received from previous RN, oriented, OOB in chair. ST on the monitor, HR 110s-120s. +rub. no wires. SBP 110-140s. weakly palpable pulses, trace generalized edema. pt on 6LNC, 94-95% POX. lungs diminished. IS encouraged. CTx4, no air leak or
crepitus noted. pt abdomen round, s/n, denies n/v. clears tolerated. due to void post Rolle removal. sternal aquacel intact, chest tube dressing c/d/i. R groin site MARIBEL. b/l LE GIBRAN bandages in place. RIJ cordis maintained. PIV. insulin gtt running
per protocol. see worklist for VS, I&O, and assessment.
[2024-07-26] MEDS: SENOKOT-S 1 TABLET PO ×2 (08:06→19:47)
[2024-07-26] MEDS: PROTONIX 40 MG PO (08:06)
[2024-07-26] MEDS: CRESTOR 40 MG PO (08:06)
[2024-07-26] MEDS: NEURONTIN 100 MG PO ×3 (08:06→19:47)
[2024-07-26] MEDS: PLAVIX 75 MG PO (08:06)
[2024-07-26] MEDS: LOW STRENGTH ASPIRIN 81 MG PO (08:06)
[2024-07-26] MEDS: LOPRESSOR 12.5 MG PO ×2 (08:07→19:47)
[2024-07-26] MEDS: BACTROBAN 2% OINTMENT 1 APPLIC NASAL ×2 (08:08→19:46)
[2024-07-26] MEDS: LIDOCAINE 4% PATCH 1 PATCH TOPICAL (08:08)
[2024-07-26 08:21] LABS: Glucose - Point of Care 110 mg/dl (70-99)
[2024-07-26] MEDS: NOVOLOG FLEXPEN SC (08:30)
--- NOTE | 2024-07-26 08:31 | W.PN.INTV ---
Today's Communication / Plan
Recommendations
Pain control
Up OOB as tolerated
Encourage incentive spirometer
Chest tube management per CT surgery
Maintain SpO2 >90 this 94%, and wean down O2 flow rate as tolerated
Goal BG 140-180mg/dL with insulin gtt
Patient will remain CVICU status until weaned off insulin drip. Fitting Room Supervisor services will continue to follow along until off insulin drip, at which time we will sign off.
Assessment
-
Assessment: 69-year-old male non-smoker with a past medical history of CAD with history of stent, hypertension, dyslipidemia, DM type II, and morbid obesity who presents with elective CABG. Patient known to Dr. Garcia with cardio thoracic surgery,
last visit on 06/27/2024. He had a recent left heart catheterization on 06/22/2024 showing multivessel disease with normal LVEDP at [address] chest on 07/12/2024 showed no acute findings in the chest. PFTs on 07/21/2024 showed mild
restriction with no obstruction and normal gas exchange capacity. The risks and benefits of surgical revascularization were discussed and he has agreed to this procedure. Today he underwent CABG x 5, and was transferred to the CVICU
postoperatively with bilateral pleural chest tubes and mediastinal chest tubes x 2. Fitting Room Supervisor service is consulted for additional management/recommendations.
Chronic conditions LEAD INFORMATICA DEVELOPER: coronary artery disease, hypertension, dyslipidemia, type II diabetes, hyperbilirubinemia, nocturia, sinus tachycardia, chronic CK elevation, obesity, cypher diagonal stent
Impression:
#Multivessel CAD s/p CABG x 5 (OR date: 07/25/2024)
#Acute anemia due to above
#Acute thrombocytopenia due to above - now resolved
#NIDDM (uncontrolled � HbA1c: 10.21 07/21/2024)
#IBS with diarrhea
#Obesity (BMI: 35.4)
#History of mild hyperbilirubinemia
Plan:
Patient extubated to nasal cannula on 07/25/2024, and is currently on 3 L/min saturating 93%
Maintain SpO2 >90-94%
prn nebulized bronchodilators - not currently bronchospastic
Encourage incentive spirometer use q1hr while awake
Pressors/antihypertensive/inotropes/diuretics will be provided as needed
Maintain MAP>65
Replete electrolytes with K>4, Mg>2
Monitor chest tube output (bilateral pleural chest tubes + mediastinal chest tubes x 2)
Monitor hemoglobin
Monitor platelet count and coags
Transfuse blood products as needed to maintain Hb>7g/dL, plt>50k (given post-operative status)
CT surgery managing chest tubes
Monitor blood sugar to maintain euglycemia with goal BG 140-180
Insulin drip per protocol
Trend LFTs and T bili
Aspiration precautions
DVT prophylaxis
Early nutrition
Early mobilization
Patient will remain CVICU status until weaned off insulin drip. Fitting Room Supervisor services will continue to follow along until off insulin drip, at which time we will sign off.
Critical care statement: A total of 41 minutes of critical care time was provided for this patient today. This includes management of ventilator, spontaneous breathing trial, arterial blood gases, pressors, of unstable vital signs, evaluation of the
patient at bedside, reviewing the patient's pertinent medical records including radiographs, microbiology, laboratory evaluations, and discussion with primary team and critical care nursing.
Data:
CXR 07/25/2024:
1. Postoperative from CABG surgery with an endotracheal tube, right IJ central venous catheter, and bilateral pleural chest tubes in place.
2. Moderately decreased bilateral lung volumes with enlargement of the cardiomediastinal silhouette and mild bilateral perihilar subsegmental atelectasis.
CXR 07/26/2024:
Interval removal of endotracheal tube.
No pneumothorax.
Subjective Dataa
Subjective Data
Date of Service:
Date of Service: July 26, 2024
Chief Complaint: Fitting Room Supervisor Follow Up
Subjective:
Patient seen today at bedside. Sitting in chair no acute distress, currently on insulin drip at 12 units/h. On 3 L/min, saturating 93% with heart rate 116 and BP 134/85. Chest tubes x [address] His partner, Jenny, at bedside and all
questions were answered. He currently has a sore chest but denies shortness of breath, PARSONS, nausea, fevers or chills.
Review of Systems
General: Other (Negative unless mentioned above)
Objective Data
Data Reviewed
Vital Signs / I&O / Oxygen:
Vital Signs
Temp Pulse Resp BP Pulse Ox
99.7 F 117 158 118/64 94
07/26/24 05:00 07/26/24 08:07 07/26/24 07:03 07/26/24 08:07 07/26/24 08:00
Intake and Output
07/25/24 07/26/24 07/27/24
06:59 06:59 06:59
Intake Total 569.6 / 595.6
Output Total 1275 / 1415 190 / 190
Balance -705.4 / -819.4 -164 / -164
SaO2 [CPAP] 92
SaO2 [SIMV] 91
SaO2 94
Nasal Cannula flow liters per 4
minute
Physical Exam
General: Respiratory Distress (negative), Pain (post-operative site/chest), Chills (negative) and Sweats (negative)
HEENT: Normocephalic, Anicteric and Other (R-IJ cordis in place)
Cardiovascular: S1-S2, Peripheral Edema (negative) and Other (Tachycardic)
Respiratory: Wheeze (negative), Crackles (Bibasilar), Rhonchi (negative), Non-Labored Respirations and Stridor (negative)
GI: Soft, Distended (Abdominal obesity), Non Tender and Normal Bowel Sounds
Neurology: AO x 3 and Tremors (negative)
Skin: Warm, Dry, Cyanosis (negative) and Jaundice (negative)
Labs/Micro/Reports
Lab Data
07/26/24 03:53
07/26/24 03:53
Laboratory Results
07/25/24 07/25/24 07/25/24
15:47 17:25 19:15
PT 16.2 H
INR 1.27
APTT 29.0
pH 7.35 7.40 7.37
pCO2 50 H 38 32 L
pO2 70 L 65 L 65 L
HCO3 27.6 23.5 18.5 L
O2 Delivery Level Not Reportable
07/25/24
22:57
PT
INR
APTT
pH 7.41
pCO2 35
pO2 65 L
HCO3 22.2
O2 Delivery Level
[2024-07-26] MEDS: VITAMIN D3 (cholecalciferol) 100 MCG PO (08:42)
--- NOTE | 2024-07-26 08:43 | PN.DE.MGMTRT ---
Insulin Management
- -
07/26/2024 Diabetes Management Consult
Patient admitted 07/25 for CABG x 5. PMH CAD, HTN, HLD, diabetes, hyperbilirubinemia, nocturia, obesity. Prior to admission was taking metformin 500 mg pm, Jardiance 25 mg daily, glimepiride 4 mg daily @ 12 noon, Wegovy .25 on Thursday. A1C on
admission 10.2%. Cr .6, eGFR > 60 07/26.
POD 1 Patient doing well, awake alert and oriented, but admits he had pain meds and is a bit sleepy. Receiving insulin infusion per glycemic protocol requiring 7 to 16 units of insulin per hour.
Will continue glycemic protocol today and assess for readiness to transition tomorrow.
Discussed with patient he may require insulin with A1C of 10.2. He is in agreement.
Requested nurse begin to demonstrate ease of use of prefilled pens. Will provide education for pens tomorrow. Patient has working glucose monitor and supplies.
Diabetes History
- -
Type of Diabetes: 2
Pre-Admission Diabetes Regimen
07/25/24 07/26/24
15:47 03:53
Creatinine 0.6 L 0.8
Lab Results
Hemoglobin A1c 10.2 % (4.0-5.6) H 07/21/24 08:23
Insulin Pump Settings
IP Diabetes Regimen
07/25/24 07/25/24 07/25/24
15:47 16:59 18:03
Glucose 203 H
POC Glucose 211 H 198 H 206 H
07/25/24 07/25/24 07/25/24
18:59 20:18 21:17
Glucose
POC Glucose 209 H 222 H 188 H
07/25/24 07/25/24 07/26/24
22:25 22:56 00:06
Glucose
POC Glucose 171 H 170 H 135 H
07/26/24 07/26/24 07/26/24
00:56 02:13 03:53
Glucose 78
POC Glucose 130 H 112 H
07/26/24 07/26/24 07/26/24
03:57 05:47 08:13
Glucose
POC Glucose 81 169 H 110 H
Patient Education
[2024-07-26 09:52] LABS: Glucose - Point of Care 80 mg/dl (70-99)
[2024-07-26 11:28] LABS: Glucose - Point of Care 163 mg/dl (70-99)
[2024-07-26] MEDS: NOVOLOG FLEXPEN 8 UNITS SC ×2 (11:30→17:54)
--- NOTE | 2024-07-26 12:00 | PTCARENOTE ---
pt VSS, no changes in assessment. pt placed back to bed x1-2 assist w/ CR. IS encouraged. insulin gtt running as ordered.
--- NOTE | 2024-07-26 12:08 | CM ---
Chart reviewed. Patient is independent of ADLS, lives with his S.O in a [address], [address], 0 DME but has a RW and SPC at home if needed. Plan is for the patient to return home. CM to follow
[2024-07-26] MEDS: THERAGRAN 1 TABLET PO (12:54)
[2024-07-26 13:01] LABS: Glucose - Point of Care 141 mg/dl (70-99)
[2024-07-26] MEDS: NSS IV (14:05)
--- NOTE | 2024-07-26 14:30 | PTCARENOTE ---
FISHER TRAWL NET aware of bladder scan, pt presently has no urge to void/no c/o pain r/t voiding. OOB to chair x1-2 assist.
[2024-07-26 15:08] LABS: Glucose - Point of Care 97 mg/dl (70-99)
--- NOTE | 2024-07-26 15:30 | PTCARENOTE ---
pt VSS, no changes in assessment. IS encouraged. oral hygiene performed. b/l GIBRAN bandages removed. tolerating diet.
[2024-07-26 17:06] LABS: Glucose - Point of Care 115 mg/dl (70-99)
[2024-07-26 17:54] LABS: Glucose - Point of Care 106 mg/dl (70-99)
--- NOTE | 2024-07-26 18:03 | PTCARENOTE ---
pt bladder scanned for 213ml, pt tolerating oral intake. ADZING AND BORING MACHINE HELPER aware. pt offers no c/o pain or urge to void.
[2024-07-26 19:58] LABS: Glucose - Point of Care 133 mg/dl (70-99)
--- NOTE | 2024-07-26 20:00 | PTCARENOTE ---
assumed care of pt from previous RN. pt A&Ox4, resting in chair at time of assessment. sinus tach on tele-monitor. POX 92% on 4 L NC. IS encouraged. 750ml achieved on IS. CTx4 (mediastinal x2, R & L pleural) to -20cm wall suction. abd s/n, round,
obese. +BS. pt DTV. all surgical sites stable, CDI. R IJ cordis w/ KVO. PIV intact. see worklist for complete nursing assessment, interventions, VS, and I&Os.
[2024-07-26 22:25] LABS: Glucose - Point of Care 84 mg/dl (70-99)
[2024-07-26 23:58] LABS: Glucose - Point of Care 135 mg/dl (70-99)
[2024-07-27] VITALS (24 sets, daily range): BP systolic 98–157; BP diastolic 57–88; PULSE 110; O2SAT 92–94; BMI 36.3
[2024-07-27 02:06] LABS: Glucose - Point of Care 84 mg/dl (70-99)
--- NOTE | 2024-07-27 02:47 | DOWNTIME ---
There was a [email or web address] Client [employer] Downtime on 07/27/2024 from 0100 to 07/27/2023 at 0205 . Downtime documentation of patient's care, including medication administrations, has been reconciled in the electronic record per guidelines. Refer to the
patient's paper chart under the miscellaneous tab to see printed paper medication records and downtime forms.
--- NOTE | 2024-07-27 03:12 | W.PN.CT ---
Today's Communication / Plan
-
Plan:
-No major issues overnight. Hemodynamically and neurologically intact
-Off all drips but insulin
-Consider d/c of chest tubes: 2meds 110/310, R/L pleurals 130/330
-AM cxr looks clear, no ptx, mild left base atelectasis on my review. F/U official report
-Sinus tachycardia improving, currently, 102 bpm. Baseline sinus tachycardia 120
-Cont. current meds (ASA, Plavix, Vascepa, Amiodarone, Lopressor, insulin gtt, Xopenex)
-Transfer to tele phase today when off insulin gtt per protocol. Diabetes education/management ZIGZAG TOPSTITCHER following, (hgb A1C 10.2)
-Maintain cordis
-No temporary PW
-Wean off of O2 as tolerated
-Encourage use of IS
-OOB into chair/Ambulate
Assessment / Plan
-
Assessment:
-S/P Median sternotomy/CABG x 5 (ROXANNE to LAD, GSV to D1, GSV to OM1, GSV to OM2 [upper branch], GSV to RPDA)/Endoscopic harvest/prep of B/L LE GSVs, by Dr. Garcia, 07/25/24, pod#2
-Severe multivessel coronary artery disease
-[place]
-Hx CAD S/P PCI with BASSAM to 2018
-Sinus tachycardia
-New RBBB postop
-LVEF 60-65% per intraop MARICHUY
-Trace - mild TR
-HTN
-HLD (statin intolerance, on Vascepa @ home)
-T2DM (A1C 10.2)
-Class 2 obesity (BMI 35.4)
-Suspected RADHA
-Seasonal allergies
-Chronic elevated CK
-Hx of elevated LFTs
-Irritable bowel syndrome with diarrhea.
-Nocturia.
-Degenerative joint disease/osteoarthritis
-S/P R TKR, 05/2022
-S/p R knee meniscus repair, 06/16/14
-S/p L shoulder repair, 10/16/10
-S/p R ankle fx repair
-S/P removal of right knee bursa, 1993
-S/p bilateral inguinal herniorrhaphy
-S/p umbilical herniorrhaphy
-S/P Tonsillectomy
-Acute postop blood loss/Anemia (stable without blood transfusion)
-Acute postop thrombocytopenia (stable without active bleed)
-Acute postop new RBBB
-Acute postop atelectasis
-Acute postop pulmonary insufficiency
-Acute postop hypovolemia with subsequent hypervolemia
Discussed patient care with: Cardiology, Nursing, Respiratory Therapy, Pharmacy and Care Team
Subjective
Procedure
-S/P Median sternotomy/CABG x 5 (ROXANNE to LAD, GSV to D1, GSV to OM1, GSV to OM2 [upper branch], GSV to RPDA)/Endoscopic harvest/prep of B/L LE GSVs, by Dr. Garcia, 07/25/24
-
Date of Service: July 27, 2024
Pt c/o mild incisional pain, otherwise feels well
Objective Data
-
PT 16.2 Sec (11.4-14.6) H 07/25/24 15:47
INR 1.27 07/25/24 15:47
APTT 29.0 Sec (23.4-35.0) 07/25/24 15:47
Vital Signs
Vital Signs
Temp Pulse Resp BP Pulse Ox
99.1 F 97 18 115/74 91
07/27/24 00:00 07/27/24 03:00 07/27/24 00:00 07/27/24 03:00 07/27/24 00:00
CT Intake/Output/Weight
07/26/24 07/26/24 07/27/24
06:59 18:59 06:59
Intake Total 533.6 / 595.6 1593.2 / 1663.2 70 / 1663.2
Output Total 840 / 1415 400 / 510 110 / 510
Balance -306.4 / -819.4 1193.2 / 1153.2 -40 / 1153.2
SaO2: 92 (4L)
Physical Exam
-
General: Awake, Oriented and AOx3
Cardiovascular: Regular rate & rhythm, No Murmurs and No Gallop
Respiratory: Decreased Breath Sounds
Sternum: Stable
Incision: Clean, Dry, Intact and Dressing Intact
Extremities: Other (+trace edema)
Data Reviewed
-
Lab Results: Results Reviewed
Medications: Active Meds Reviewed
Chest X-Ray: Report Reviewed and Image Reviewed
ECG: Report Reviewed and Image Reviewed
[2024-07-27 03:33] LABS: Ionized Calcium 1.16 mMOL/L (1.15-1.33)
[2024-07-27 03:39] LABS: Hematocrit 34.3 % (39.0-52.0); Hemoglobin 11.5 g/dL (13.0-18.0); Mean Corp Hgb Conc. 33.5 g/dL (33.0-37.0); Mean Corpuscular Hgb 31.9 pg (27.0-31.0); Mean Platelet Volume 10.2 fL (7.4-10.4); Platelet Count 131 10^3/uL (130-400); Red Blood Cell Count 3.61 10^6/uL (4.70-6.10)
--- NOTE | 2024-07-27 04:00 | PTCARENOTE ---
no acute changes. VSS. AM labs collected and sent.
[2024-07-27 04:02] LABS: Blood Urea Nitrogen 24 mg/dl (9-20); Calcium 8.4 mg/dl (8.4-10.2); Carbon Dioxide 31 mmol/L (22-30); Chloride 101 mmol/L (98-107); Estimated Creatinine Clearance 116 ml/min; Glucose 113 mg/dl (70-99); Magnesium 2.1 mg/dl (1.6-2.3); Potassium 4.4 mmol/L (3.5-5.1); Sodium 136 mmol/L (135-145); eGFR > 60.00
[2024-07-27 04:16] LABS: Glucose - Point of Care 130 mg/dl (70-99)
[2024-07-27] MEDS: TYLENOL 1000 MG PO ×3 (05:51→20:36)
[2024-07-27] MEDS: NOVOLIN R INSULIN INFUSION 100 IV (05:51)
[2024-07-27] MEDS: CALCIUM GLUCONATE 100 IV (05:51)
[2024-07-27 05:58] LABS: Glucose - Point of Care 102 mg/dl (70-99)
[2024-07-27] MEDS: XOPENEX 1.25 MG INHALANT SOLUTION INH ×3 (07:02→19:44)
--- NOTE | 2024-07-27 07:49 | PN.DE.MGMTRT ---
Insulin Management
- -
07/27/2024 Diabetes Management Consult
Patient admitted 07/25 for CABG x 5. PMH CAD, HTN, HLD, diabetes, hyperbilirubinemia, nocturia, obesity. Prior to admission was taking metformin 500 mg pm, Jardiance 25 mg daily, glimepiride 4 mg daily @ 12 noon, Wegovy .25 on Thursday. A1C on
admission 10.2%. Cr .6, eGFR > 60 07/26.
POD 2 Patient doing well, awake alert and oriented. Receiving insulin infusion per glycemic protocol requiring .3 to 8 units of insulin per hour.
Will continue glycemic protocol today and transition to subcutaneous insulin late evening. To receive 20 units lantus @ 8pm and insulin infusion off at 10pm. Will check 3am glucose. Will start 10 units novolog AC with moderate corrective 07/28 AM.
Demonstrated insulin prep and injection technique with patient. Patient currently taking Wegovy so familiar with self injection. Reviewed differences in insulin pen and provided printed step by step instructions for insulin self injection.
Provided home pen needles to nurse. Requested nurse reinforce use of prefilled pens
by having patient self inject when insulin required. Patient has working glucose monitor and supplies.
Discussed with nurse
Will follow
Diabetes History
- -
Type of Diabetes: 2 requiring insulin
Pre-Admission Diabetes Regimen
07/27/24
03:26
Creatinine 0.8
Lab Results
Hemoglobin A1c 10.2 % (4.0-5.6) H 07/21/24 08:23
Insulin Pump Settings
IP Diabetes Regimen
07/26/24 07/26/24 07/26/24
08:13 09:51 11:26
Glucose
POC Glucose 110 H 80 163 H
07/26/24 07/26/24 07/26/24
12:58 15:06 17:05
Glucose
POC Glucose 141 H 97 115 H
07/26/24 07/26/24 07/26/24
17:53 19:52 22:14
Glucose
POC Glucose 106 H 133 H 84
07/26/24 07/27/24 07/27/24
23:56 02:03 03:26
Glucose 113 H
POC Glucose 135 H 84
07/27/24 07/27/24
04:04 05:54
Glucose
POC Glucose 130 H 102 H
Meal type: Breakfast
Patient Education
--- NOTE | 2024-07-27 08:00 | PTCARENOTE ---
pt received from previous RN, oriented, OOB in chair. ST on the monitor, HR 100s. +rub. no wires. SBP 100s. weakly palpable pulses, +1 generalized edema. pt on 4LNC, 91-94% POX. lungs diminished. IS encouraged. chest PT performed. CTx4, no air leak
or crepitus noted. pt abdomen round, s/n, denies n/v. +BS, +flatus per pt. diet tolerated. voiding. OOB to chair x2 assist. sternal aquacel intact, chest tube dressing c/d/i. R groin site MARIBEL. b/l leg incisions intact. RIJ cordis maintained. PIV.
insulin gtt running per protocol. see worklist for VS, I&O, and assessment.
--- NOTE | 2024-07-27 08:15 | W.PN.CD ---
Today's Communication / Plan
-
- Chest tubes coming out today
- IS and OOB
- Increase Metoprolol
Impression / Plan
-
IMPRESSION/PLAN: 69M with coronary artery disease (PCI, 2005), hypertension, dyslipidemia, type 2 diabetes mellitus, and sinus tachycardia who had an abnormal stress test which prompted cardiac catheterization which demonstrated multivessel coronary
artery disease. He presents for CABG.
Primary sports cartoonist: Dr. Frederick Garibay (formerly Dr. Degroot)
CAD s/p CABG x 5 (ROXANNE to LAD, GSV to D1, GSV to OM1, GSV to OM2 [upper branch], GSV to RPDA) by Dr. Garcia on 07/25/2024
-EKG sinus rhythm with RBBB, RBBB is new
-Post-MARICHUY: LVEF 65-70% w/o RWMA, no significant VHD
-Telemetry stable
Sinus tachycardia
- On Metoprolol 12.5 mg BID - increase to 25
HTN,
- Labile and off pressors
- Increasing metoprolol for now - hold if hypotensive.
Hypertriglyceridemia
-Fasting lipid panel in a.m.
-On Vascepa and rosuvastatin 40 mg, goal LDL <55, triglycerides 996 in May & Direct LDL 30
Type II DM, uncontrolled, hemoglobin A1c 10.2%
Obesity, BMI 35, he would benefit from weight loss, on GLP-1
Physical Exam
Vital Signs/Labs
Vital Signs
Temp Pulse Resp BP Pulse Ox
97.6 F 103 20 107/64 91
07/27/24 06:00 07/27/24 08:00 07/27/24 07:05 07/27/24 08:00 07/27/24 08:00
07/26/24 07/27/24 07/28/24
06:59 06:59 06:59
Actual Weight 116.8 kg 117.9 kg
07/27/24 03:26
07/27/24 03:26
PT 16.2 Sec (11.4-14.6) H 07/25/24 15:47
INR 1.27 07/25/24 15:47
APTT 29.0 Sec (23.4-35.0) 07/25/24 15:47
Magnesium 2.1 mg/dl (1.6-2.3) 07/27/24 03:26
Triglycerides 1000 mg/dl (10-149) H 07/26/24 03:53
LDL Cholesterol, Calc mg/dl 07/26/24 03:53
VLDL Cholesterol, Calc mg/dl (0-30) 07/26/24 03:53
HDL Cholesterol 32 mg/dl 07/26/24 03:53
Physical Exam
Constitutional: No acute distress and Comfortable
EENT: Anicteric and Moist mucous membranes
Cardiovascular: Rhythm & rate is regular, Pedal edema is absent, Systolic murmur absent and JVD present
Respiratory: Respiratory effort normal, Wheeze Absent, Crackles Absent and Rhonchi Absent
GI: Soft, Non tender and Normal bowel sounds
Neuro/Psych: Alert, Oriented and AO x 3
Data Reviewed
-
Date of Service: July 27, 2024
Medical Decision Making: Reviewed Test Results, Test Interpretation and Review of Case with other Provider
EKG: Tracing Personally Visualized and interpreted
X-Ray/CT/US/MRI/NUC/PET: Image Personally Visualized and interpreted
Labs: Labs Reviewed by me
Old Records: Reviewed
Critical Care Time (in minutes): 35
[2024-07-27 08:18] LABS: Glucose - Point of Care 97 mg/dl (70-99)
[2024-07-27] MEDS: VITAMIN D3 (cholecalciferol) 100 MCG PO (08:19)
[2024-07-27] MEDS: PROTONIX 40 MG PO (08:19)
[2024-07-27] MEDS: PLAVIX 75 MG PO (08:19)
[2024-07-27] MEDS: PACERONE 200 MG PO ×3 (08:20→20:36)
[2024-07-27] MEDS: NEURONTIN 100 MG PO ×3 (08:20→20:36)
[2024-07-27] MEDS: LOW STRENGTH ASPIRIN 81 MG PO (08:20)
[2024-07-27] MEDS: ROXICODONE 5 MG PO (08:20)
[2024-07-27] MEDS: SENOKOT-S 1 TABLET PO ×2 (08:20→20:36)
[2024-07-27] MEDS: CRESTOR 40 MG PO (08:20)
[2024-07-27] MEDS: MAGNESIUM OXIDE 500 MG PO ×2 (08:20→20:36)
[2024-07-27] MEDS: LIDOCAINE 4% PATCH 1 PATCH TOPICAL (08:21)
[2024-07-27] MEDS: NOVOLOG FLEXPEN 8 UNITS SC ×3 (08:21→19:01)
[2024-07-27] MEDS: BACTROBAN 2% OINTMENT 1 APPLIC NASAL ×2 (08:21→20:37)
--- NOTE | 2024-07-27 08:29 | W.PN.INTV ---
Today's Communication / Plan
Recommendations
Pain control
Up OOB as tolerated
Encourage incentive spirometer
Chest tubes removed this AM
Maintain SpO2 >90 this 94%, and wean down O2 flow rate as tolerated
Goal BG 140-180mg/dL with insulin gtt --> insulin drip to be stopped tonight after lantus given
Plan is to stop insulin drip later tonight after he gets Lantus. After insulin drip is stopped he will likely be transitioned to CVICU�telemetry status. Once downgraded then we will sign off at that time. Please call Pulmonary service if any
questions or concerns arise.
Assessment
-
Assessment: 69-year-old male non-smoker with a past medical history of CAD with history of stent, hypertension, dyslipidemia, DM type II, and morbid obesity who presents with elective CABG. Patient known to Dr. Garcia with cardio thoracic surgery,
last visit on 06/27/2024. He had a recent left heart catheterization on 06/22/2024 showing multivessel disease with normal LVEDP at [address] chest on 07/12/2024 showed no acute findings in the chest. PFTs on 07/21/2024 showed mild
restriction with no obstruction and normal gas exchange capacity. The risks and benefits of surgical revascularization were discussed and he has agreed to this procedure. Today he underwent CABG x 5, and was transferred to the CVICU
postoperatively with bilateral pleural chest tubes and mediastinal chest tubes x 2. Hvac Design Engineer service is consulted for additional management/recommendations.
Chronic conditions BODY SHOP ESTIMATOR: coronary artery disease, hypertension, dyslipidemia, type II diabetes, hyperbilirubinemia, nocturia, sinus tachycardia, chronic CK elevation, obesity, cypher diagonal stent
Impression:
#Multivessel CAD s/p CABG x 5 (OR date: 07/25/2024)
#Acute anemia due to above
#Acute thrombocytopenia due to above - now resolved
#Hematuria reported by patient
#NIDDM (uncontrolled � HbA1c: 10.21 07/21/2024)
#IBS with diarrhea
#Obesity (BMI: 35.4)
#History of mild hyperbilirubinemia
Plan:
Patient extubated to nasal cannula on 07/25/2024, and is currently on 4 L/min saturating 96%
Maintain SpO2 >90-94%
prn nebulized bronchodilators - not currently bronchospastic
Encourage incentive spirometer use q1hr while awake
Pressors/antihypertensive/inotropes/diuretics will be provided as needed
Maintain MAP>65
Replete electrolytes with K>4, Mg>2
Bilateral pleural chest tubes + mediastinal chest tubes x 2 all removed this AM
Monitor hemoglobin
Monitor platelet count and coags
Transfuse blood products as needed to maintain Hb>7g/dL, plt>50k (given post-operative status)
Monitor blood sugar to maintain euglycemia with goal BG 140-180
Insulin drip per protocol - plan to DC later this evening after getting lantus per diabetic GOLF MANAGER
Trend LFTs and T bili
Continue to monitor for hematuria, nursing staff is made aware by me
Aspiration precautions
DVT prophylaxis
Early nutrition
Early mobilization
Plan is to stop insulin drip later tonight after he gets Lantus. After insulin drip is stopped he will likely be transitioned to CVICU�telemetry status. Once downgraded then we will sign off at that time. Thank you for allowing us to be involved
in the care of this patient and please call Pulmonary service if any questions or concerns arise.
Total time spent today was 76 minutes for this encounter. Time includes reviewing laboratory test/imaging results, reviewing pertinent medical records, obtaining and reviewing medical history, performing an appropriate exam, ordering medications,
tests and procedures. Time also includes documentation of this encounter, coordinating patient care and communicating with other healthcare professionals. Total time does not include separately billed tests performed on this date of service.
Data:
CXR 07/25/2024:
1. Postoperative from CABG surgery with an endotracheal tube, right IJ central venous catheter, and bilateral pleural chest tubes in place.
2. Moderately decreased bilateral lung volumes with enlargement of the cardiomediastinal silhouette and mild bilateral perihilar subsegmental atelectasis.
CXR 07/26/2024:
Interval removal of endotracheal tube.
No pneumothorax.
CXR 07/27/2024:
No acute disease in chest.
Cardiomegaly. Stable.
Subjective Dataa
Subjective Data
Date of Service:
Date of Service: July 27, 2024
Chief Complaint: Hvac Design Engineer Follow Up
Subjective:
Pt seen this AM. Remains on insulin gtt at 14 units/hr. Sitting in chair in NAD. On 4L/min, denies SOB. Has some chest soreness. HR 96, SpO2 96% and BP 157/83. He had some bloody urine earlier today, per patient. He currently denies PARSONS,
nausea, vomiting, fevers or chills.
Review of Systems
General: Other (Negative unless mentioned above)
Objective Data
Data Reviewed
Vital Signs / I&O / Oxygen:
Vital Signs
Temp Pulse Resp BP Pulse Ox
98.6 F 103 20 107/64 91
07/27/24 08:00 07/27/24 08:00 07/27/24 08:00 07/27/24 08:00 07/27/24 08:00
Intake and Output
07/26/24 07/27/24 07/28/24
06:59 06:59 06:59
Intake Total 569.6 / 595.6 1764.1 / 1778.4 28.6 / 28.6
Output Total 1275 / 1415 790 / 790
Balance -705.4 / -819.4 974.1 / 988.4 18.6 / 18.6
SaO2 [CPAP] 92
SaO2 [SIMV] 91
SaO2 91
Nasal Cannula flow liters per 4
minute
Physical Exam
General: Respiratory Distress (negative), Pain (post-operative site/chest), Chills (negative) and Sweats (negative)
HEENT: Normocephalic, Anicteric and Other (R-IJ cordis in place)
Cardiovascular: S1-S2 and Peripheral Edema (negative)
Respiratory: Wheeze (negative), Crackles (Bibasilar), Rhonchi (negative), Non-Labored Respirations and Stridor (negative)
GI: Soft, Distended (Abdominal obesity), Non Tender and Normal Bowel Sounds
Neurology: AO x 3 and Tremors (negative)
Skin: Warm, Dry, Cyanosis (negative) and Jaundice (negative)
Labs/Micro/Reports
Lab Data
07/27/24 03:26
07/27/24 03:26
[2024-07-27] MEDS: LOPRESSOR PO (08:38)
[2024-07-27] MEDS: LOPRESSOR 25 MG PO ×2 (08:38→20:37)
[2024-07-27] MEDS: GLUCOPHAGE 500 MG PO ×2 (09:24→18:36)
[2024-07-27] MEDS: FARXIGA 10 MG PO (09:24)
--- NOTE | 2024-07-27 10:00 | PTCARENOTE ---
pt placed back to bed x2 person assist. CTx4 dc'd as ordered, dressing c/d/i.
[2024-07-27 10:05] LABS: Glucose - Point of Care 156 mg/dl (70-99)
[2024-07-27 12:00] LABS: Glucose - Point of Care 127 mg/dl (70-99)
--- NOTE | 2024-07-27 12:05 | PTCARENOTE ---
Resting in bed at present. VSS. Pain well managed. Assessment otherwise unchanged from prior.
[2024-07-27] MEDS: THERAGRAN 1 TABLET PO (12:07)
--- NOTE | 2024-07-27 14:00 | PTCARENOTE ---
resumed care of patient from previous RN. AAOx3. flat affect. resting in bed at time of assessment. ST on the monitor, HR 100s. VSS. weakly palpable pulses, +1 generalized edema. 91-94% on 3L nc. lungs diminished. IS 500-750. +BS appetite fair.
voiding in urinal/somtimes incontinent. OOB to chair x1 assist. all surgical sites c/d/i. RIJ cordis maintained. insulin gtt per protocol. will continue to monitor.
[2024-07-27 14:13] LABS: Glucose - Point of Care 90 mg/dl (70-99)
[2024-07-27 15:52] LABS: Glucose - Point of Care 157 mg/dl (70-99)
[2024-07-27 18:31] LABS: Glucose - Point of Care 73 mg/dl (70-99)
[2024-07-27] MEDS: NSS 500 IV (18:36)
--- NOTE | 2024-07-27 20:00 | PTCARENOTE ---
assumed care of pt from previous RN. pt A&Ox4 resting in bed at time of assessment. Sinus tach on tele-monitor. POX 92% on 3 L NC. abd firm, non-tender, round, obese. +BS. pt reports passing gas. voiding clear, rodriguez colored urine. incontinent at
times. all surgical sites stable, CDI. R IJ cordis w/ KVO. PIV intact. see worklist for complete nursing assessment, interventions, VS, I&Os.
[2024-07-27 20:27] LABS: Glucose - Point of Care 206 mg/dl (70-99)
[2024-07-27] MEDS: FLEXERIL 5 MG PO (20:36)
[2024-07-27] MEDS: LANTUS 0.2 UNITS SC (20:37)
[2024-07-27 21:51] LABS: Glucose - Point of Care 142 mg/dl (70-99)
[2024-07-27 22:30] LABS: Glucose - Point of Care 126 mg/dl (70-99)
[2024-07-28] VITALS (10 sets, daily range): BP systolic 107–134; BP diastolic 64–82; PULSE 95; O2SAT 90; BMI 36.5
--- NOTE | 2024-07-28 | PTCARENOTE ---
assessment remains unchanged. VSS. glycemic protocol d/c at 2230.
[2024-07-28 03:41] LABS: Hematocrit 31.6 % (39.0-52.0); Hemoglobin 10.5 g/dL (13.0-18.0); Mean Corp Hgb Conc. 33.2 g/dL (33.0-37.0); Mean Corpuscular Hgb 31.7 pg (27.0-31.0); Mean Corpuscular Volume 95.5 fL (80.0-94.0); Mean Platelet Volume 10.3 fL (7.4-10.4); Platelet Count 126 10^3/uL (130-400); Red Blood Cell Count 3.31 10^6/uL (4.70-6.10); Red Cell Dist. Width 13.6 % (11.5-14.5); White Blood Cell Count 10.6 10^3/uL (4.8-10.8)
--- NOTE | 2024-07-28 04:00 | PTCARENOTE ---
no acute changes. VSS. AM labs collected and sent.
[2024-07-28 04:05] LABS: Blood Urea Nitrogen 21 mg/dl (9-20); Calcium 7.9 mg/dl (8.4-10.2); Carbon Dioxide 29 mmol/L (22-30); Chloride 99 mmol/L (98-107); Estimated Creatinine Clearance 117 ml/min; Glucose 134 mg/dl (70-99); Magnesium 1.9 mg/dl (1.6-2.3); Potassium 4.5 mmol/L (3.5-5.1); Sodium 134 mmol/L (135-145); eGFR > 60.00
--- NOTE | 2024-07-28 04:09 | W.PN.CT ---
Today's Communication / Plan
-
-pod #3
-no issues overnight
-wt is up 6 lbs. Consider diuresis. Cr 0.8
-wean off O2 as tolerated - pOx 93% on 2L
-current meds (ASA, Plavix, Lopressor 25 bid, Amio, Crestor, Farxiga, Metformin, Lantus, Protonix)
-encourage IS, OOB, ambulate
-appreciate everyone's input
Assessment / Plan
-
Assessment:
-S/P Median sternotomy/CABG x 5 (ROXANNE to LAD, GSV to D1, GSV to OM1, GSV to OM2 [upper branch], GSV to RPDA)/Endoscopic harvest/prep of B/L LE GSVs, by Dr. Garcia, 07/25/24, pod#3
-Severe multivessel coronary artery disease
-[place]
-Hx CAD S/P PCI with BSASAM to 2018
-Sinus tachycardia
-New RBBB postop
-LVEF 60-65% per intraop MARICHUY
-Trace - mild TR
-HTN
-HLD (statin intolerance, on Vascepa @ home)
-T2DM (A1C 10.2)
-Class 2 obesity (BMI 35.4)
-Suspected RADHA
-Seasonal allergies
-Chronic elevated CK
-Hx of elevated LFTs
-Irritable bowel syndrome with diarrhea.
-Nocturia.
-Degenerative joint disease/osteoarthritis
-S/P R TKR, 05/2022
-S/p R knee meniscus repair, 06/16/14
-S/p L shoulder repair, 10/16/10
-S/p R ankle fx repair
-S/P removal of right knee bursa, 1993
-S/p bilateral inguinal herniorrhaphy
-S/p umbilical herniorrhaphy
-S/P Tonsillectomy
-Acute postop blood loss/Anemia (stable without blood transfusion)
-Acute postop thrombocytopenia (stable without active bleed)
-Acute postop transient new RBBB- resolved
-Acute postop atelectasis
-Acute postop pulmonary insufficiency
-Acute postop hypovolemia with subsequent hypervolemia
Discussed patient care with: Nursing and Care Team
Subjective
Procedure
-S/P Median sternotomy/CABG x 5 (ROXANNE to LAD, GSV to D1, GSV to OM1, GSV to OM2 [upper branch], GSV to RPDA)/Endoscopic harvest/prep of B/L LE GSVs, by Dr. Garcia, 07/25/24
-
Date of Service: July 28, 2024
Objective Data
-
Lab Results
07/28/24 03:27
07/28/24 03:27
PT 16.2 Sec (11.4-14.6) H 07/25/24 15:47
INR 1.27 07/25/24 15:47
APTT 29.0 Sec (23.4-35.0) 07/25/24 15:47
Vital Signs
Vital Signs
Temp Pulse Resp BP Pulse Ox
98.0 F 92 16 114/64 93
07/27/24 20:00 07/28/24 03:00 07/28/24 00:00 07/28/24 00:00 07/28/24 01:00
CT Intake/Output/Weight
07/27/24 07/27/24 07/28/24
06:59 18:59 06:59
Intake Total 170.9 / 1778.4 689.5 / 787.6 98.1 / 787.6
Output Total 390 / 790 460 / 660 200 / 660
Balance -219.1 / 988.4 229.5 / 127.6 -101.9 / 127.6
SaO2: 93
Physical Exam
-
General: Awake and AOx3
Cardiovascular: Regular rate & rhythm, No Murmurs and No Rub
Respiratory: Rales (at bases) and Decreased Breath Sounds
Sternum: Stable
Incision: Clean, Dry and Intact
Extremities: Edema +2
Data Reviewed
-
Lab Results: Results Reviewed
Medications: Active Meds Reviewed
Chest X-Ray: Report Reviewed and Image Reviewed
ECG: Report Reviewed and Image Reviewed
[2024-07-28] MEDS: TYLENOL 1000 MG PO ×3 (06:38→22:06)
[2024-07-28 08:33] LABS: Glucose - Point of Care 192 mg/dl (70-99)
[2024-07-28] MEDS: NOVOLOG FLEXPEN 10 UNITS SC ×2 (08:33→15:23)
[2024-07-28] MEDS: NOVOLOG FLEXPEN-MODERATE RESISTANCE 1 UNITS SC (08:33)
--- NOTE | 2024-07-28 08:53 | W.PN.CD ---
Today's Communication / Plan
-
stable on tele
continue current therapy
Impression / Plan
-
IMPRESSION/PLAN: 69M with coronary artery disease (PCI, 2005), hypertension, dyslipidemia, type 2 diabetes mellitus, and sinus tachycardia who had an abnormal stress test which prompted cardiac catheterization which demonstrated multivessel coronary
artery disease. He presents for CABG.
Primary superintendent colliery: Dr. Frederick Garibay (formerly Dr. Degroot)
CAD s/p CABG x 5 (ROXANNE to LAD, GSV to D1, GSV to OM1, GSV to OM2 [upper branch], GSV to RPDA) by Dr. Garcia on 07/25/2024
-EKG sinus rhythm with RBBB, RBBB is new
-Post-MARICHUY: LVEF 65-70% w/o RWMA, no significant VHD
-Telemetry stable
HTN, - labile by report. currently
- stable
Hypertriglyceridemia
-Fasting lipid panel in a.m.
-On Vascepa and rosuvastatin 40 mg, goal LDL <55, triglycerides 996 in May & Direct LDL 30
Type II DM, uncontrolled, hemoglobin A1c 10.2%
Obesity, BMI 35, he would benefit from weight loss, on GLP-1
Physical Exam
Vital Signs/Labs
Vital Signs
Temp Pulse Resp BP Pulse Ox
97.8 F 93 16 114/70 96
07/28/24 04:00 07/28/24 06:00 07/28/24 04:00 07/28/24 04:00 07/28/24 05:00
07/27/24 07/28/24 07/29/24
06:59 06:59 06:59
Actual Weight 117.9 kg 118.8 kg
07/28/24 03:27
07/28/24 03:27
PT 16.2 Sec (11.4-14.6) H 07/25/24 15:47
INR 1.27 07/25/24 15:47
APTT 29.0 Sec (23.4-35.0) 07/25/24 15:47
Magnesium 1.9 mg/dl (1.6-2.3) 07/28/24 03:27
Triglycerides 1000 mg/dl (10-149) H 07/26/24 03:53
LDL Cholesterol, Calc mg/dl 07/26/24 03:53
VLDL Cholesterol, Calc mg/dl (0-30) 07/26/24 03:53
HDL Cholesterol 32 mg/dl 07/26/24 03:53
Physical Exam
Constitutional: No acute distress
Cardiovascular: Rhythm & rate is regular
Respiratory: Wheeze Absent and Rhonchi Absent
GI: Soft
Neuro/Psych: Alert
Data Reviewed
-
Date of Service: July 28, 2024
EKG: Report Reviewed by me
Medical Tests (PFT, Pathology etc): Report Reviewed by me
Labs: Labs Reviewed by me
--- NOTE | 2024-07-28 08:55 | PN.DE.MGMTRT ---
Insulin Management
- -
07/28/2024 Diabetes Management F/U:
Patient admitted 07/25 for CABG x 5. PMH CAD, HTN, HLD, T2DM, hyperbilirubinemia, nocturia, obesity. Prior to admission was taking Metformin 500 mg pm, Jardiance 25 mg daily, glimepiride 4 mg daily @ 12 noon, Wegovy .25 on Thursday. A1C on admission
10.2%. Cr .6, eGFR > 60 07/26.
Pt awake, alert and oriented, sitting up in chair, at bedside, able to participate in diabetes mgt plan.
POD #3 Patient doing well, Transitioned off glycemic protocol yesterday late evening to SQ Insulin
Received 20 units Lantus @ 8pm and insulin infusion off at 10pm. 3 am glucose was 134, FBG 196 POC
Will make no changes to current regimen. Cont Lantus 20 units, AC NovoLog 10 units with moderate corrective, Metformin 500mg BID and Farxiga 10mg daily (was taking Jardiance 25mg DOOR ATTENDANT)
Will cont to follow and make further insulin dose adjustments if needed.
Pt states he has enough glucose meter supplies at home, however, is requesting for scripts, will add to ambulatory orders. States he is comfortable woith insulin self injections, Nurse provided more BD Glroy needles to reinforce education.
06/26 Demonstrated insulin prep and injection technique with patient. Patient currently taking Wegovy so familiar with self injection. Reviewed differences in insulin pen and provided printed step by step instructions for insulin self injection.
Provided home pen needles to nurse. Requested nurse reinforce use of prefilled pens
by having patient self inject when insulin required. Patient has working glucose monitor and supplies.
Discussed with nurse
Diabetes History
- -
Type of Diabetes: 2 requiring insulin
Pre-Admission Diabetes Regimen
07/28/24
03:27
Creatinine 0.8
Lab Results
Hemoglobin A1c 10.2 % (4.0-5.6) H 07/21/24 08:23
Insulin Pump Settings
IP Diabetes Regimen
07/27/24 07/27/24 07/27/24
10:04 11:58 14:12
Glucose
POC Glucose 156 H 127 H 90
07/27/24 07/27/24 07/27/24
15:50 18:30 20:25
Glucose
POC Glucose 157 H 73 206 H
07/27/24 07/27/24 07/28/24
21:50 22:29 03:27
Glucose 134 H
POC Glucose 142 H 126 H
07/28/24
08:32
Glucose
POC Glucose 192 H
Meal type: Dinner
Meal type: Breakfast
Amount consumed: 75%
Patient Education
[2024-07-28] MEDS: LOPRESSOR 25 MG PO ×2 (09:24→19:36)
[2024-07-28] MEDS: NEURONTIN 100 MG PO ×2 (09:24→16:22)
[2024-07-28] MEDS: LOW STRENGTH ASPIRIN 81 MG PO (09:24)
[2024-07-28] MEDS: MAGNESIUM OXIDE 500 MG PO ×2 (09:24→19:36)
[2024-07-28] MEDS: FARXIGA 10 MG PO (09:25)
[2024-07-28] MEDS: CRESTOR 40 MG PO (09:25)
[2024-07-28] MEDS: VITAMIN D3 (cholecalciferol) 100 MCG PO (09:25)
[2024-07-28] MEDS: PACERONE 200 MG PO ×3 (09:25→22:06)
[2024-07-28] MEDS: GLUCOPHAGE 500 MG PO ×2 (09:25→16:22)
[2024-07-28] MEDS: LASIX 40 MG IV ×2 (09:25→16:22)
[2024-07-28] MEDS: PLAVIX 75 MG PO (09:25)
[2024-07-28] MEDS: PROTONIX 40 MG PO (09:25)
[2024-07-28] MEDS: SENOKOT-S 1 TABLET PO ×2 (09:25→19:35)
[2024-07-28] MEDS: BACTROBAN 2% OINTMENT 1 APPLIC NASAL ×2 (09:26→19:35)
[2024-07-28] MEDS: NOVOLOG FLEXPEN SC ×2 (10:35→17:48)
[2024-07-28] MEDS: LIDOCAINE 4% PATCH TOPICAL (10:36)
--- NOTE | 2024-07-28 11:10 | PTCARENOTE ---
assumed care of pt from previous shift RN, sinus rhythm on tele, VSS. + peripheral pulses, +1 edema to lower extremities. Lungs diminished, coughing and deep breathing encouraged. +bs, tolerating PO intake, voids spontaneously. Sternal aquacell
intact, Dressing removed from sutures, skin tears to chest BROWNING PROCESSOR. PIV flushes easily. plan of care reviewed w the pt and questions encouraged.
--- NOTE | 2024-07-28 12:02 | PTCARENOTE ---
Vss, pt assisted from chair to bed. PT/OT consulted.
--- NOTE | 2024-07-28 12:42 | CM ---
Chart reviewed. Patient is independent of ADLS, lives with his S.O in a [address], [address], 0 DME but has a SPC and RW at home if needed. Plan is for the patient to return home with CT Transitional RN. CM to follow
[2024-07-28] MEDS: THERAGRAN PO (12:53)
--- NOTE | 2024-07-28 13:39 | W.PN.ANS.POP ---
Anesthesia Post Operative
- Anesthesia Post Op Note
Vital Signs Stable-See Nursing Note: Yes
Airway Patent: Yes
Adequate Pain Control: Yes
Change in Mental Status: Yes
Current Postoperative Nausea & Vomiting: No
Anesthesia Complications: No
General Anesthetic Recall: No
Unplanned Admission: No
Post Op Hydration Adequate: Yes
[2024-07-28] MEDS: ROXICODONE 2.5 MG PO ×2 (14:37→19:38)
[2024-07-28 15:23] LABS: Glucose - Point of Care 205 mg/dl (70-99)
[2024-07-28] MEDS: NOVOLOG FLEXPEN-MODERATE RESISTANCE 3 UNITS SC (15:23)
[2024-07-28] MEDS: NSS IV (16:00)
[2024-07-28] MEDS: NOVOLOG FLEXPEN-MODERATE RESISTANCE SC (17:49)
--- NOTE | 2024-07-28 19:30 | PTCARENOTE ---
Received pt from [facility], walking rounds completed. Pt assessment completed in bed. Pt is AAOx4. No neuro deficits noted. NSR on monitor, HR 100, B/P 134/82. Pulses palpable, generalized trace edema noted throughout. Lungs clear, diminished in
bases. Pt has frequent cough with clear sputum. POX 93% RA. Normal bowel sounds. Abdomen soft, non-tender to touch. Pt voiding clear, yellow urine. R 18G PVA intact and flushes. no redness or edema noted. Discussed plan of care with pt. Pt agrees
with plan. Will continue to monitor pt needs.
[2024-07-28 22:06] LABS: Glucose - Point of Care 237 mg/dl (70-99)
[2024-07-28] MEDS: LANTUS 0.2 UNITS SC (22:06)
[2024-07-29] VITALS (12 sets, daily range): BP systolic 104–153; BP diastolic 69–103; PULSE 93–103; O2SAT 93–96; BMI 35.7
--- NOTE | 2024-07-29 00:05 | PTCARENOTE ---
VSS. NSR on monitor. HR 91, B/P 104/69. Evening care provided. Pt resting in bed. Will continue to monitor pt needs.
[2024-07-29 02:45] LABS: Hematocrit 32.2 % (39.0-52.0); Hemoglobin 10.9 g/dL (13.0-18.0); Mean Corp Hgb Conc. 33.9 g/dL (33.0-37.0); Mean Corpuscular Hgb 31.5 pg (27.0-31.0); Mean Corpuscular Volume 93.1 fL (80.0-94.0); Mean Platelet Volume 10.1 fL (7.4-10.4); Platelet Count 179 10^3/uL (130-400); Red Blood Cell Count 3.46 10^6/uL (4.70-6.10); Red Cell Dist. Width 13.3 % (11.5-14.5); White Blood Cell Count 8.2 10^3/uL (4.8-10.8)
[2024-07-29 03:00] LABS: Blood Urea Nitrogen 23 mg/dl (9-20); Calcium 8.1 mg/dl (8.4-10.2); Carbon Dioxide 28 mmol/L (22-30); Chloride 99 mmol/L (98-107); Estimated Creatinine Clearance > 125 ml/min; Glucose 162 mg/dl (70-99); Magnesium 2.1 mg/dl (1.6-2.3); Potassium 4.3 mmol/L (3.5-5.1); Sodium 135 mmol/L (135-145); eGFR > 60.00
--- NOTE | 2024-07-29 03:03 | W.PN.CT ---
Today's Communication / Plan
-
-pod #4
-no issues overnight
-diuresing with bid Lasix- continue
-current meds (ASA, Plavix, Lopressor 25 bid, Amio, Crestor, Farxiga, Metformin, Lantus, Protonix)
-encourage IS, OOB, ambulate
-appreciate everyone's input
Assessment / Plan
-
Assessment:
-S/P Median sternotomy/CABG x 5 (ROXANNE to LAD, GSV to D1, GSV to OM1, GSV to OM2 [upper branch], GSV to RPDA)/Endoscopic harvest/prep of B/L LE GSVs, by Dr. Garcia, 07/25/24, pod#4
-Severe multivessel coronary artery disease
-[place]
-Hx CAD S/P PCI with BASSAM to 2018
-Sinus tachycardia
-New RBBB postop
-LVEF 60-65% per intraop MARICHUY
-Trace - mild TR
-HTN
-HLD (statin intolerance, on Vascepa @ home)
-T2DM (A1C 10.2)
-Class 2 obesity (BMI 35.4)
-Suspected RADHA
-Seasonal allergies
-Chronic elevated CK
-Hx of elevated LFTs
-Irritable bowel syndrome with diarrhea.
-Nocturia.
-Degenerative joint disease/osteoarthritis
-S/P R TKR, 05/2022
-S/p R knee meniscus repair, 06/16/14
-S/p L shoulder repair, 10/16/10
-S/p R ankle fx repair
-S/P removal of right knee bursa, 1993
-S/p bilateral inguinal herniorrhaphy
-S/p umbilical herniorrhaphy
-S/P Tonsillectomy
-Acute postop blood loss/Anemia (stable without blood transfusion)
-Acute postop thrombocytopenia (stable without active bleed)
-Acute postop transient new RBBB- resolved
-Acute postop atelectasis
-Acute postop pulmonary insufficiency
-Acute postop hypovolemia with subsequent hypervolemia
Discussed patient care with: Nursing and Care Team
Subjective
Procedure
-S/P Median sternotomy/CABG x 5 (ROXANNE to LAD, GSV to D1, GSV to OM1, GSV to OM2 [upper branch], GSV to RPDA)/Endoscopic harvest/prep of B/L LE GSVs, by Dr. Garcia, 07/25/24
-
Date of Service: July 29, 2024
Objective Data
-
Lab Results
07/29/24 02:32
07/29/24 02:32
PT 16.2 Sec (11.4-14.6) H 07/25/24 15:47
INR 1.27 07/25/24 15:47
APTT 29.0 Sec (23.4-35.0) 07/25/24 15:47
Vital Signs
Vital Signs
Temp Pulse Resp BP Pulse Ox
97.9 F 89 18 104/69 92
07/28/24 23:48 07/29/24 02:00 07/28/24 23:48 07/29/24 00:00 07/29/24 02:00
CT Intake/Output/Weight
07/28/24 07/28/24 07/29/24
06:59 18:59 06:59
Intake Total 138.1 / 827.6
Output Total 550 / 1010 800 / 1150 350 / 1150
Balance -411.9 / -182.4 -780 / -1130 -350 / -1130
SaO2: 92
Physical Exam
-
General: Awake and AOx3
Cardiovascular: Regular rate & rhythm, No Murmurs and No Rub
Respiratory: Rales (at bases. No wheeze) and Decreased Breath Sounds
Sternum: Stable
Incision: Clean, Dry and Intact
Extremities: Edema +1
Data Reviewed
-
Lab Results: Results Reviewed
Medications: Active Meds Reviewed
Chest X-Ray: Report Reviewed and Image Reviewed
ECG: Report Reviewed and Image Reviewed
--- NOTE | 2024-07-29 04:26 | PTCARENOTE ---
VSS, NSR on monitor. HR 89, B/P 108/74. Morning labs obtained and sent. Weight obtained. Am care provided. Pt resting in bed. Will continue to monitor pt needs.
[2024-07-29] MEDS: TYLENOL 1000 MG PO ×3 (06:59→22:28)
--- NOTE | 2024-07-29 07:46 | PN.DE.MGMTRT ---
Insulin Management
- -
07/29/2024: Diabetes Management F/U:
Patient admitted 07/25 for CABG x 5. PMH CAD, HTN, HLD, T2DM, hyperbilirubinemia, nocturia, obesity. Prior to admission was taking Metformin 500 mg pm, Jardiance 25 mg daily, glimepiride 4 mg daily @ 12 noon, Wegovy .25 on Thursday. A1C on admission
10.2%. Cr .6, eGFR > 60 07/26.
Pt awake, alert and oriented, sitting up in chair, at bedside, able to participate in diabetes mgt plan.
POD #4 Patient doing well, Transitioned off glycemic protocol 07/27 to SQ Insulin
07/28 premeal glucose 192 to 205, HS glucose was 237, 3am glucose was 162(V), FBG 191 POC this AM.
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
Will cont to follow and make further insulin dose adjustments if needed.
Pt states he has enough glucose meter supplies at home, however, is requesting for scripts, will add to ambulatory orders.
States he is comfortable with insulin self injections, Nurse provided BD Glory needles to continue reinforcing education.
Recs at D/C: Jardiance 25mg daily, Wegovy 0.25mg Q Sun, Metformin 500 mg BID, Lantus 20 units @ HS, NovoLog 10 units AC,
06/26 Demonstrated insulin prep and injection technique with patient. Patient currently taking Wegovy so familiar with self injection. Reviewed differences in insulin pen and provided printed step by step instructions for insulin self injection.
Provided home pen needles to nurse. Requested nurse reinforce use of prefilled pens
by having patient self inject when insulin required. Patient has working glucose monitor and supplies.
Discussed with nurse
Diabetes History
- -
Type of Diabetes: 2 requiring insulin
Pre-Admission Diabetes Regimen
07/29/24
02:32
Creatinine 0.7
Lab Results
Hemoglobin A1c 10.2 % (4.0-5.6) H 07/21/24 08:23
Insulin Pump Settings
IP Diabetes Regimen
07/28/24 07/28/24 07/28/24
08:32 15:22 22:05
Glucose
POC Glucose 192 H 205 H 237 H
07/29/24
02:32
Glucose 162 H
POC Glucose
Meal type: Breakfast
Patient Education
[2024-07-29 08:14] LABS: Glucose - Point of Care 191 mg/dl (70-99)
[2024-07-29] MEDS: NOVOLOG FLEXPEN 10 UNITS SC (08:14)
[2024-07-29] MEDS: NOVOLOG FLEXPEN-MODERATE RESISTANCE 1 UNITS SC ×3 (08:14→16:48)
--- NOTE | 2024-07-29 08:53 | W.PN.CD ---
Today's Communication / Plan
-
Restart home ramipril, followed by amlodipine if BP tolerates.
Agree with diuresis. Change to PO diuretics tomorrow.
Incentive spirometry.
Ambulate.
Impression / Plan
-
IMPRESSION/PLAN: 69M with coronary artery disease (PCI, 2005), hypertension, dyslipidemia, type 2 diabetes mellitus, and sinus tachycardia admitted for elective CABG after an abnormal stress test prompted cardiac catheterization which demonstrated
multivessel coronary artery disease.
#CAD
-Chronic, progressive.
-S/P CABG x 5 (ROXANNE to LAD, GSV to D1, GSV to OM1, GSV to OM2 [upper branch], GSV to RPDA) by Dr. Garcia on 07/25/2024.
-Expectant post operative management.
-Continue amiodarone, aspirin, clopidogrel, metoprolol and rosuvastatin.
-Incentive spirometry.
-Ambulate.
-Agree with furosemide. Monitor renal function. PO diuretics tomorrow.
#HTN
-Chronic, reportedly labile.
-Continue metoprolol.
-Restart ramipril 10 mg daily and amlodipine 10 mg daily if BP will permit.
#Hypertriglyceridemia
-Chronic, stable.
-Continue icosapent ethyl and rosuvastatin 40 mg. Goal LDL <55, Triglycerides < 150.
-Triglycerides 996 in May & Direct LDL 30.
#NIDDM
-Chronic, uncontrolled.
-Hemoglobin A1c 10.2%.
-Resume metformin, empagliflozin.
-Resume semaglutide as an outpatient.
-It appears that he may transition to insulin dependence with this hospitalization.
#Obesity
-Chronic, BMI 35.
-He would benefit from weight loss.
-Resume GLP-1 as an outpatient.
Primary optometrist owner: Dr. Frederick Garibay (formerly Dr. Degroot)
Subjective/Interval History:
Diuretics started yesterday.
Weight down 2.9 kg (near baseline weight).
Metoprolol increased yesterday.
HR consistently 90-105 (baseline documented around 120 bpm).
DATA:
Cardiac Catheterization, 06/22/2024:
CONCLUSIONS
1. Right dominant circulation with a 60% tapering of the densely calcified LAD as it approaches D1, a napkin ring, 80% lesion immediately after the origin of D1, a 70% lesion in the mid LAD followed by a 60-70% lesion in the distal mid LAD, and 80%
lesion in the proximal margin of OM1 and a chronic total occlusion of the proximal RCA with robust collaterals from the LAD/septal perforators to the RPDA/distal RCA.
2. Normal filling pressures (LVEDP = 11 mmHg at 114.0 kg).
Physical Exam
Vital Signs/Labs
Vital Signs
Temp Pulse Resp BP Pulse Ox
36.6 C 102 18 142/82 91
07/28/24 23:48 07/29/24 05:28 07/28/24 23:48 07/29/24 05:28 07/29/24 05:27
07/27/24 07/28/24 07/29/24
11:59 11:59 11:59
Actual Weight 117.9 kg 118.8 kg 115.9 kg
07/29/24 02:32
07/29/24 02:32
PT 16.2 Sec (11.4-14.6) H 07/25/24 15:47
INR 1.27 07/25/24 15:47
APTT 29.0 Sec (23.4-35.0) 07/25/24 15:47
Magnesium 2.1 mg/dl (1.6-2.3) 07/29/24 02:32
Triglycerides 1000 mg/dl (10-149) H 07/26/24 03:53
LDL Cholesterol, Calc mg/dl 07/26/24 03:53
VLDL Cholesterol, Calc mg/dl (0-30) 07/26/24 03:53
HDL Cholesterol 32 mg/dl 07/26/24 03:53
Physical Exam
Constitutional: No acute distress and Comfortable
EENT: Anicteric and Moist mucous membranes
Cardiovascular: Rhythm & rate is regular, Pedal edema is absent, JVD pressure is normal, S1S2 is normal and Murmur/rub/gallop absent
Respiratory: Respiratory effort normal, Lungs clear to auscul. and Other (Decreased throughout. Persistent expiratory cough.)
GI: Soft, Distention absent, Flat, Non tender and Normal bowel sounds
Neuro/Psych: AO x 3
Data Reviewed
-
Date of Service: July 29, 2024
Medical Decision Making: Reviewed Test Results, Independent Historian Assessment and Test Interpretation
EKG: Tracing Personally Visualized and interpreted and Report Reviewed by me
Echo: Report Reviewed by me
X-Ray/CT/US/MRI/NUC/PET: Image Personally Visualized and interpreted and Report Reviewed by me
Medical Tests (PFT, Pathology etc): Image Personally Visualized and interpreted and Report Reviewed by me
Labs: Labs Reviewed by me
Old Records: Reviewed
[2024-07-29] MEDS: PLAVIX 75 MG PO (09:05)
[2024-07-29] MEDS: CRESTOR 40 MG PO (09:05)
[2024-07-29] MEDS: PACERONE 200 MG PO ×3 (09:05→22:28)
[2024-07-29] MEDS: LOPRESSOR 25 MG PO ×2 (09:05→19:30)
[2024-07-29] MEDS: GLUCOPHAGE 500 MG PO ×2 (09:05→16:50)
[2024-07-29] MEDS: PROTONIX 40 MG PO (09:05)
[2024-07-29] MEDS: LOW STRENGTH ASPIRIN 81 MG PO (09:05)
[2024-07-29] MEDS: SENOKOT-S 1 TABLET PO (09:05)
[2024-07-29] MEDS: BACTROBAN 2% OINTMENT 1 APPLIC NASAL (09:06)
[2024-07-29] MEDS: MAGNESIUM OXIDE 500 MG PO ×2 (09:06→19:29)
[2024-07-29] MEDS: FARXIGA 10 MG PO (09:06)
[2024-07-29] MEDS: LIDOCAINE 4% PATCH TOPICAL (09:06)
[2024-07-29] MEDS: VITAMIN D3 (cholecalciferol) 100 MCG PO (09:06)
--- NOTE | 2024-07-29 09:53 | PTCARENOTE ---
assumed care of pt from previous shift RN, sinus rhythm on tele, VSS. + peripheral pulses, +1 edema to lower extremities. Lungs diminished, coughing and deep breathing encouraged. +bs, tolerating PO intake, voids spontaneously. Sternal aquacell
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 PIV flushes easily. plan of care reviewed w the pt and questions encouraged.
--- NOTE | 2024-07-29 11:39 | CM ---
Chart reviewed. Patient is independent of ADLS, lives with his significant other in a [address], [address], 0 [address] but has a RW and SPC at home if needed. Plan is for the patient to return home with CT Transitional RN. CM to follow
--- NOTE | 2024-07-29 12:22 | PTCARENOTE ---
VSS, sinus rhythm maintained on tele, tolerated PT/OT.
[2024-07-29] MEDS: NSS IV (12:23)
[2024-07-29] MEDS: ALTACE 10 MG PO ×2 (12:56→19:29)
[2024-07-29] MEDS: THERAGRAN 1 TABLET PO (12:56)
[2024-07-29 12:58] LABS: Glucose - Point of Care 179 mg/dl (70-99)
[2024-07-29] MEDS: NOVOLOG FLEXPEN 12 UNITS SC ×2 (12:58→16:48)
[2024-07-29] MEDS: LASIX 40 MG PO (15:18)
--- NOTE | 2024-07-29 16:22 | PTCARENOTE ---
VSS, sinus rhythm maintained on tele, pt tolerated walking in hallway. 2 view CXR competed.
[2024-07-29 16:47] LABS: Glucose - Point of Care 176 mg/dl (70-99)
[2024-07-29] MEDS: SENOKOT-S PO (19:17)
[2024-07-29] MEDS: ZOFRAN 4 MG IV (19:30)
[2024-07-29 22:24] LABS: Glucose - Point of Care 177 mg/dl (70-99)
[2024-07-29] MEDS: LANTUS 0.22 UNITS SC (22:27)
--- NOTE | 2024-07-29 22:47 | PTCARENOTE ---
Pt seated in chair with at bedside at change of shift. complaining of nausea- PRN Zofran provided. pt reports passing flatus and 2 loose BMs today. Plan of care discussed for the evening- pt verbalized understanding. SR on the monitor.
Ambulating X1 with the rolling walker around the room. Encouraged to use the IS occasionally gets to 1000- needs reinforcement on proper use. Sternal dressing CDI with scant old drainage- CT sites sutured and MARIBEL. B/L legs BOX STAPLER and approximated with
Surgi glue. +1 lower extremity edema. + pedal pulses.
[2024-07-30] VITALS (38 sets, daily range): BP systolic 77–120; BP diastolic 52–76; PULSE 109; O2SAT 96; BMI 35.3
[2024-07-30 03:53] LABS: Hemoglobin 10.5 g/dL (13.0-18.0); Mean Corp Hgb Conc. 33.9 g/dL (33.0-37.0); Mean Corpuscular Hgb 31.6 pg (27.0-31.0); Mean Corpuscular Volume 93.4 fL (80.0-94.0); Mean Platelet Volume 9.8 fL (7.4-10.4); Platelet Count 204 10^3/uL (130-400); Red Blood Cell Count 3.32 10^6/uL (4.70-6.10); White Blood Cell Count 7.7 10^3/uL (4.8-10.8)
[2024-07-30 04:14] LABS: Blood Urea Nitrogen 23 mg/dl (9-20); Calcium 7.9 mg/dl (8.4-10.2); Carbon Dioxide 31 mmol/L (22-30); Chloride 97 mmol/L (98-107); Estimated Creatinine Clearance 103 ml/min; Glucose 150 mg/dl (70-99); Magnesium 2.3 mg/dl (1.6-2.3); Potassium 3.9 mmol/L (3.5-5.1); Sodium 136 mmol/L (135-145); eGFR > 60.00
[2024-07-30] MEDS: TYLENOL 1000 MG PO ×3 (04:43→20:57)
--- NOTE | 2024-07-30 07:01 | W.PN.CT ---
Today's Communication / Plan
-
-pod #5
-pt is having hallucinations this am - seeing squirrels in the room. He is A&O x4. Didn't sleep at all last night, ambulated in hallways this am. Last Roxicodone and Gabapentin doses were on 07/28 pm. Last Flexeril dose on 07/27.
-will hold all narcs and monitor
-had some nausea last night and am. Denies any abdominal pain, bloating or distention, had BMs
-diuresing with 40 qd Lasix
-follow 2v-CXR today
Assessment / Plan
-
Assessment:
-S/P Median sternotomy/CABG x 5 (ROXANNE to LAD, GSV to D1, GSV to OM1, GSV to OM2 [upper branch], GSV to RPDA)/Endoscopic harvest/prep of B/L LE GSVs, by Dr. Garcia, 07/25/24, pod#5
-Severe multivessel coronary artery disease
-[place]
-Hx CAD S/P PCI with BASSAM to 2018
-Sinus tachycardia
-New RBBB postop
-LVEF 60-65% per intraop MARICHUY
-Trace - mild TR
-HTN
-HLD (statin intolerance, on Vascepa @ home)
-T2DM (A1C 10.2)
-Class 2 obesity (BMI 35.4)
-Suspected RADHA
-Seasonal allergies
-Chronic elevated CK
-Hx of elevated LFTs
-Irritable bowel syndrome with diarrhea.
-Nocturia.
-Degenerative joint disease/osteoarthritis
-S/P R TKR, 05/2022
-S/p R knee meniscus repair, 06/16/14
-S/p L shoulder repair, 10/16/10
-S/p R ankle fx repair
-S/P removal of right knee bursa, 1993
-S/p bilateral inguinal herniorrhaphy
-S/p umbilical herniorrhaphy
-S/P Tonsillectomy
-Acute postop blood loss/Anemia (stable without blood transfusion)
-Acute postop thrombocytopenia (stable without active bleed)
-Acute postop transient new RBBB- resolved
-Acute postop atelectasis
-Acute postop pulmonary insufficiency
-Acute postop hypovolemia with subsequent hypervolemia
Discussed patient care with: Nursing and Care Team
Subjective
Procedure
-S/P Median sternotomy/CABG x 5 (ROXANNE to LAD, GSV to D1, GSV to OM1, GSV to OM2 [upper branch], GSV to RPDA)/Endoscopic harvest/prep of B/L LE GSVs, by Dr. Garcia, 07/25/24
-
Date of Service: July 30, 2024
Objective Data
-
Lab Results
07/30/24 03:43
07/30/24 03:43
PT 16.2 Sec (11.4-14.6) H 07/25/24 15:47
INR 1.27 07/25/24 15:47
APTT 29.0 Sec (23.4-35.0) 07/25/24 15:47
Vital Signs
Vital Signs
Temp Pulse Resp BP Pulse Ox
98.1 F 95 20 97/66 93
07/30/24 04:03 07/30/24 04:00 07/30/24 04:03 07/30/24 03:35 07/30/24 04:03
CT Intake/Output/Weight
07/29/24 07/30/24 07/30/24
18:59 06:59 18:59
Intake Total 240 / 240
Output Total 1300 / 1950 650 / 1950
Balance -1300 / -1710 -410 / -1710
SaO2: 93
Physical Exam
-
General: Awake and AOx3
Cardiovascular: Regular rate & rhythm, No Murmurs and No Rub
Respiratory: Rales (at bases) and Decreased Breath Sounds
Sternum: Stable
Incision: Clean, Dry and Intact
Extremities: Edema +1
Abdomen: soft, nontender, nondistended, +bowel sounds, + BM
Data Reviewed
-
Lab Results: Results Reviewed
Medications: Active Meds Reviewed
Chest X-Ray: Image Reviewed
ECG: Report Reviewed and Image Reviewed
--- NOTE | 2024-07-30 08:00 | PTCARENOTE ---
pt received from previous RN, orientedx4, pt states no longer hallucinating squirrels. SR on the monitor, HR 90s. SBP 110s. palpable pulses. pt on RA, 93% POX. lungs diminished. IS encouraged. productive cough. pt abdomen round, nontender. +BS. +BM.
voids. ambulates w/ RW. 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 surgical sites intact. PIV. see worklist for VS, I&O, and assessment.
[2024-07-30 08:27] LABS: Glucose - Point of Care 163 mg/dl (70-99)
[2024-07-30] MEDS: CRESTOR 40 MG PO (08:28)
[2024-07-30] MEDS: FARXIGA 10 MG PO (08:28)
[2024-07-30] MEDS: ALTACE 10 MG PO ×2 (08:28→20:54)
[2024-07-30] MEDS: PACERONE 200 MG PO ×3 (08:28→20:58)
[2024-07-30] MEDS: LOPRESSOR 25 MG PO ×2 (08:28→20:57)
[2024-07-30] MEDS: MAGNESIUM OXIDE 500 MG PO ×2 (08:28→20:58)
[2024-07-30] MEDS: PROTONIX 40 MG PO (08:29)
[2024-07-30] MEDS: LOW STRENGTH ASPIRIN 81 MG PO (08:29)
[2024-07-30] MEDS: GLUCOPHAGE 500 MG PO ×2 (08:29→17:08)
[2024-07-30] MEDS: VITAMIN D3 (cholecalciferol) 100 MCG PO (08:29)
[2024-07-30] MEDS: PLAVIX 75 MG PO (08:29)
[2024-07-30] MEDS: SENOKOT-S PO (08:30)
[2024-07-30] MEDS: LIDOCAINE 4% PATCH TOPICAL (08:31)
[2024-07-30] MEDS: LASIX PO (08:31)
[2024-07-30] MEDS: NOVOLOG FLEXPEN 12 UNITS SC ×3 (09:00→17:08)
[2024-07-30] MEDS: NOVOLOG FLEXPEN-MODERATE RESISTANCE 1 UNITS SC ×3 (09:19→17:08)
[2024-07-30] MEDS: CORDARONE 103 MG IV (10:14)
--- NOTE | 2024-07-30 10:20 | W.PN.CD ---
Today's Communication / Plan
-
continue ASA, Plavix, rosuvastatin
Impression / Plan
-
IMPRESSION/PLAN: 69M with coronary artery disease (PCI, 2005), hypertension, dyslipidemia, type 2 diabetes mellitus, and sinus tachycardia admitted for elective CABG after an abnormal stress test prompted cardiac catheterization which demonstrated
multivessel coronary artery disease.
#CAD
-Chronic, progressive.
-S/P CABG x 5 (ROXANNE to LAD, GSV to D1, GSV to OM1, GSV to OM2 [upper branch], GSV to RPDA) by Dr. Garcia on 07/25/2024.
-rhythm: sinus
-MARICHUY: EF 60-65%
-Continue amiodarone, aspirin, clopidogrel, metoprolol and rosuvastatin.
#HTN
-Chronic, reportedly labile.
-Continue metoprolol.
-ramipiril resumed; assess to resume amlodipine as BP allows
#Hypertriglyceridemia
-Chronic, stable.
-Continue icosapent ethyl and rosuvastatin 40 mg. Goal LDL <55, Triglycerides < 150.
-Triglycerides 996 in May & Direct LDL 30.
#NIDDM
-Chronic, uncontrolled.
-Hemoglobin A1c 10.2%.
-Resume metformin, empagliflozin.
-Resume semaglutide as an outpatient.
-It appears that he may transition to insulin dependence with this hospitalization.
#Obesity
-Chronic, BMI 35.
-He would benefit from weight loss.
-Resume GLP-1 as an outpatient.
Primary energy engineer: Dr. Frederick Garibay (formerly Dr. Degroot)
Subjective/Interval History:
Diuretics started yesterday.
Weight down 2.9 kg (near baseline weight).
Metoprolol increased yesterday.
HR consistently 90-105 (baseline documented around 120 bpm).
DATA:
Cardiac Catheterization, 06/22/2024:
CONCLUSIONS
1. Right dominant circulation with a 60% tapering of the densely calcified LAD as it approaches D1, a napkin ring, 80% lesion immediately after the origin of D1, a 70% lesion in the mid LAD followed by a 60-70% lesion in the distal mid LAD, and 80%
lesion in the proximal margin of OM1 and a chronic total occlusion of the proximal RCA with robust collaterals from the LAD/septal perforators to the RPDA/distal RCA.
2. Normal filling pressures (LVEDP = 11 mmHg at 114.0 kg).
Physical Exam
Vital Signs/Labs
Vital Signs
Temp Pulse Resp BP Pulse Ox
97.4 F 95 20 116/76 93
07/30/24 08:00 07/30/24 09:00 07/30/24 08:00 07/30/24 08:25 07/30/24 09:39
07/29/24 07/30/24 07/31/24
06:59 06:59 06:59
Actual Weight 115.9 kg 114.6 kg
07/30/24 03:43
07/30/24 03:43
PT 16.2 Sec (11.4-14.6) H 07/25/24 15:47
INR 1.27 07/25/24 15:47
APTT 29.0 Sec (23.4-35.0) 07/25/24 15:47
Magnesium 2.3 mg/dl (1.6-2.3) 07/30/24 03:43
Triglycerides 1000 mg/dl (10-149) H 07/26/24 03:53
LDL Cholesterol, Calc mg/dl 07/26/24 03:53
VLDL Cholesterol, Calc mg/dl (0-30) 07/26/24 03:53
HDL Cholesterol 32 mg/dl 07/26/24 03:53
Physical Exam
Constitutional: No acute distress and Comfortable
EENT: Moist mucous membranes
Cardiovascular: Rhythm & rate is regular, JVD pressure is normal, Systolic murmur absent and Pedal edema present
Respiratory: Respiratory effort normal and Lungs clear to auscul.
Neuro/Psych: AO x 3
Data Reviewed
-
Date of Service: July 30, 2024
EKG: Other (Tele: SR 80s)
Labs: Labs Reviewed by me
[2024-07-30] MEDS: LR 1000 IV (10:25)
[2024-07-30] MEDS: CORDARONE 518 MG IV (10:27)
--- NOTE | 2024-07-30 10:44 | ECGCV ---
<Eitan Rudd PA> notified of ECG critical value identified by electronic interpretation on ECG completed on <07/30/24>, at <1000>.
--- NOTE | 2024-07-30 10:46 | PTCARENOTE ---
pt went into PAF, HR 100-130s @~0950. PA Eitan Rudd aware. pt placed back to bed, EKG performed. pt denies lightheadedness or dizziness. new PIV placed by IV team. Amiodarone bolus and gtt given as ordered. PA aware of SBP 70-80s. LR bolus given.
[2024-07-30] MEDS: MAGNESIUM SULFATE 50 IV (11:25)
--- NOTE | 2024-07-30 12:00 | PTCARENOTE ---
Addendum entered by Kaelyn Santana RN 07/30/24 15:03:
@~1257 pt converted to SR, PA aware.
Original Note:
pt VS completed, pt in bed resting. no c/o pain.
[2024-07-30 13:29] LABS: Glucose - Point of Care 175 mg/dl (70-99)
[2024-07-30] MEDS: NSS IV (13:39)
[2024-07-30] MEDS: THERAGRAN 1 TABLET PO (13:52)
--- NOTE | 2024-07-30 16:15 | PTCARENOTE ---
pt VSS, no changes in assessment. Amiodarone gtt running as ordered. voiding in urinal. ambulated in hallway w/ RW and stand by assist.
[2024-07-30 17:08] LABS: Glucose - Point of Care 186 mg/dl (70-99)
[2024-07-30 20:55] LABS: Glucose - Point of Care 135 mg/dl (70-99)
[2024-07-30] MEDS: SENOKOT-S 1 TABLET PO (20:57)
[2024-07-30] MEDS: MELATONIN 5 MG PO (20:58)
[2024-07-30] MEDS: LANTUS 0.22 UNITS SC (21:10)
--- NOTE | 2024-07-30 21:50 | PTCARENOTE ---
Patient recieved from RN @1900. Patient lying comfortably in bed w/ call barcenas in reach. VSS NSR BP 120/72 HR 87 POX 94. AOx4, heart sounds audible, lung sounds bilateral anteriorly clear, CT dressing dry and intact, Sternal wound dressing dry and
intact, right groin puncture open to air and approximated, right knee incision open to air and approximated, bowel sounds present and normoactive, urinating clear rodriguez urine, pedal and radial pulses present, strength equal bilaterally, left wrist
PIV patent and intact infusing amio at 0.5, right AC PIV patent and intact.
[2024-07-31 00:09] VITALS: BP 104/50
--- NOTE | 2024-07-31 00:37 | PTCARENOTE ---
Assessment unchanged. VSS BP 104/50 HR 82 POX 93 RA. Patient resting comfortably in bed w/ call barcenas in reach.
[2024-07-31 04:01] VITALS: BP 110/67
--- NOTE | 2024-07-31 04:10 | PTCARENOTE ---
Assessment unchanged. VSS BP 110/64 HR 87 POX 94% RA. Patient voided clear yellow urine w/ BM. CHG cloth bath completed. Patient weighed and OOB to chair w/ call barcenas in reach.
[2024-07-31 04:55] LABS: Blood Urea Nitrogen 20 mg/dl (9-20); Calcium 8.4 mg/dl (8.4-10.2); Carbon Dioxide 30 mmol/L (22-30); Chloride 97 mmol/L (98-107); Estimated Creatinine Clearance 115 ml/min; Glucose 79 mg/dl (70-99); Magnesium 2.5 mg/dl (1.6-2.3); Potassium 3.8 mmol/L (3.5-5.1); Sodium 136 mmol/L (135-145); eGFR > 60.00
--- NOTE | 2024-07-31 05:36 | W.PN.CT ---
Today's Communication / Plan
-
-no overnight events
-developed afib with RVR prior to DC yesterday, converted to NSR ~ 3 hrs s/p IV amio bolus/gtt and IV mag. gtt currently infusing. currently NSR
-slept better last night with melatonin
-voiding appropriately
-Current meds: amio gtt, asa, crestor, protonix, plavix, metorpolol 25 mg, farxiga, ramipril, lasix 40 mg daily)
-DC planning
Assessment / Plan
-
Assessment:
-S/P Median sternotomy/CABG x 5 (ROXANNE to LAD, GSV to D1, GSV to OM1, GSV to OM2 [upper branch], GSV to RPDA)/Endoscopic harvest/prep of B/L LE GSVs, by Dr. Garcia, 07/25/24, pod #6
-Severe multivessel coronary artery disease
-[place]
-Hx CAD S/P PCI with BASSAM to 2018
-Sinus tachycardia
-New RBBB postop
-LVEF 60-65% per intraop MARICHUY
-Trace - mild TR
-HTN
-HLD (statin intolerance, on Vascepa @ home)
-T2DM (A1C 10.2)
-Class 2 obesity (BMI 35.4)
-Suspected RADHA
-Seasonal allergies
-Chronic elevated CK
-Hx of elevated LFTs
-Irritable bowel syndrome with diarrhea.
-Nocturia.
-Degenerative joint disease/osteoarthritis
-S/P R TKR, 05/2022
-S/p R knee meniscus repair, 06/16/14
-S/p L shoulder repair, 10/16/10
-S/p R ankle fx repair
-S/P removal of right knee bursa, 1993
-S/p bilateral inguinal herniorrhaphy
-S/p umbilical herniorrhaphy
-S/P Tonsillectomy
-Acute postop blood loss/Anemia (stable without blood transfusion)
-Acute postop thrombocytopenia (stable without active bleed)
-Acute postop transient new RBBB- resolved
-Acute postop atelectasis
-Acute postop pulmonary insufficiency
-Acute postop hypovolemia with subsequent hypervolemia
Subjective
Procedure
-S/P Median sternotomy/CABG x 5 (ROXANNE to LAD, GSV to D1, GSV to OM1, GSV to OM2 [upper branch], GSV to RPDA)/Endoscopic harvest/prep of B/L LE GSVs, by Dr. Garcia, 07/25/24
-
Date of Service: July 31, 2024
Objective Data
-
Lab Results
07/30/24 03:43
07/31/24 04:10
PT 16.2 Sec (11.4-14.6) H 07/25/24 15:47
INR 1.27 07/25/24 15:47
APTT 29.0 Sec (23.4-35.0) 07/25/24 15:47
Vital Signs
Vital Signs
Temp Pulse Resp BP Pulse Ox
97.6 F 87 15 110/67 94
07/31/24 04:16 07/31/24 04:01 07/31/24 04:16 07/31/24 04:01 07/31/24 04:16
CT Intake/Output/Weight
07/30/24 07/30/24 07/31/24
06:59 18:59 06:59
Intake Total 240 / 240 1339.8 / 1356.5 16.7 / 1356.5
Output Total 650 / 1950 750 / 1550 800 / 1550
Balance -410 / -1710 589.8 / -193.5 -783.3 / -193.5
SaO2: 94
Physical Exam
-
General: Awake, Oriented and AOx3
Cardiovascular: Regular rate & rhythm and No Murmurs
Respiratory: Clear and Equal
Sternum: Stable
Incision: Clean, Dry and Dressing Intact
Extremities: No Edema and No Erythema
Data Reviewed
-
Lab Results: Results Reviewed
Medications: Active Meds Reviewed
Chest X-Ray: Report Reviewed
ECG: Report Reviewed
[2024-07-31 06:00] VITALS: BMI 35.2
[2024-07-31] MEDS: TYLENOL 1000 MG PO (06:48)
--- NOTE | 2024-07-31 08:00 | PTCARENOTE ---
pt received from previous RN, oriented. SR on the monitor, HR 90s. SBP 130s. palpable pulses. pt on RA, 95% POX. lungs diminished. IS encouraged. occasional productive cough. pt abdomen round, nontender. +BS. +BM. voids. ambulates w/ RW. chest tube
sites PUMPER BREWERY. surgical sites intact. PIVx2. amiodarone gtt running as ordered. see worklist for VS, I&O, and assessment.
[2024-07-31 08:10] VITALS: BP 130/75
[2024-07-31 08:12] LABS: Glucose - Point of Care 112 mg/dl (70-99)
[2024-07-31] MEDS: NOVOLOG FLEXPEN-MODERATE RESISTANCE SC (08:13)
[2024-07-31] MEDS: NOVOLOG FLEXPEN 12 UNITS SC (08:13)
[2024-07-31] MEDS: MAGNESIUM OXIDE 500 MG PO (08:25)
[2024-07-31] MEDS: LOPRESSOR 25 MG PO (08:25)
[2024-07-31] MEDS: GLUCOPHAGE 500 MG PO ×2 (08:25)
[2024-07-31] MEDS: LOW STRENGTH ASPIRIN 81 MG PO (08:25)
[2024-07-31] MEDS: KCL 40 MEQ PO (08:25)
[2024-07-31] MEDS: PROTONIX 40 MG PO (08:25)
[2024-07-31] MEDS: CRESTOR 40 MG PO (08:25)
[2024-07-31] MEDS: PACERONE 200 MG PO (08:25)
[2024-07-31] MEDS: VITAMIN D3 (cholecalciferol) 100 MCG PO (08:25)
[2024-07-31] MEDS: LIDOCAINE 4% PATCH TOPICAL (08:26)
[2024-07-31] MEDS: PLAVIX 75 MG PO (08:26)
[2024-07-31] MEDS: SENOKOT-S PO (08:26)
[2024-07-31] MEDS: LASIX 40 MG PO (08:28)
[2024-07-31] MEDS: FARXIGA 10 MG PO (08:28)
[2024-07-31] MEDS: ALTACE 10 MG PO (09:48)
[2024-07-31 09:49] VITALS: BP 123/75
--- NOTE | 2024-07-31 10:21 | W.DCSUMMARY ---
Discharge Summary
Discharge Data
Date of Admission: 07/25/24
Date of Discharge: 07/31/24
-
Pending Results: No
Hospital Course
Primary care physician:
Outpatient ticketing agent:
Inpatient consultants:
Procedures:
1. Median sternotomy/coronary artery bypass graft x 5 (left internal thoracic artery to left anterior descending, saphenous vein graft to diagonal 1, saphenous vein graft to obtuse marginal 1, saphenous vein graft to upper branch of obtuse marginal
2, saphenous vein graft to right PDA)/Endoscopic harvest/prep of bilateral lower extremity greater saphenous veins, by Dr. Garcia, 07/25/24
Primary Diagnosis:
1. Multivessel coronary artery disease
Secondary Diagnoses:
1. Acute postoperative blood loss/Anemia (stable without blood transfusion)
2. Acute postoperative thrombocytopenia (stable without active bleed)
3. Acute postoperative transient new right bundle branch block- resolved
4. Acute postoperative atelectasis
5. Acute postoperative pulmonary insufficiency
6. Acute postoperative hypovolemia with subsequent hypervolemia
7. Unstable angina
8. History of CAD with prior PCI with drug-eluting stent to 2018
9. Sinus tachycardia
10. Trace - mild tricuspid regurgitation
11. Hypertension
12. Hyperlipidemia (statin intolerance, on Vascepa @ home)
13. Type 2 diabetes mellitus, uncontrolled (A1C 10.2)
14. Class 2 obesity (body mass index 35.4)
15. Suspected obstructive sleep apnea
16. Seasonal allergies
17. History of elevated liver function tests
18. Irritable bowel syndrome with diarrhea.
19. Nocturia.
20. Degenerative joint disease/osteoarthritis
HPI: Patient was seen and evaluated by Dr. Temo Garcia in our outpatient office. He presented with significant coronary artery disease and was recommended for coronary bypass grafting surgery. After discussions with Dr. Garcia, the patient
accepted the risks and benefits of proceeding with surgery. He was admitted from the outpatient setting electively for the proposed procedure.
Hospital course: Patient underwent coronary artery bypass grafting by Dr. Garcia on 08/02/2024. Please refer to his separately dictated operative report for complete details. Postoperatively the patient was transferred to the intensive care unit in
stable condition on low-dose Levophed and Precedex drips. Patient was extubated per usual protocol around 11:15 PM that evening. He did have some initial hypoxia upon arriving to the unit which quickly resolved with a DuoNeb. Vasoactive infusions
were weaned throughout the course of the night.
Postoperative day #1: Patient continues to progress well. Rolle catheter was removed. Insulin drip was maintained due to the patient's history of diabetes. Diabetes management was involved to assist with medication management. No other new
issues.
Postoperative day #2: Chest tubes were removed. Beta-blockers were titrated to effect for sinus tachycardia. Patient was transitioned off the IV insulin infusion to intermittent insulin boluses. He began working with physical therapy and
outpatient therapy.
Postoperative day #3: Cordis was removed. Patient continues to ambulate well. Diuresis was ongoing. No other new issues.
Postoperative day #4: Lasix was continued. Physical therapy and Occupational Therapy cleared the patient for home. Home beta-blockers were resumed.
Postoperative day #5: Patient was ready for discharge however went into rapid atrial fibrillation around 10 AM. This lasted for approximately 3 hours and resolved with amiodarone bolus and drip. He remained in sinus rhythm for the rest of the day.
Discharge was delayed for rhythm monitoring.
Postoperative day #6: Patient has remained in sinus rhythm and is ready for home. He will be discharged on a 2-week course of p.o. amiodarone for rhythm suppression. We will continue with beta-blockers as well. He would not be sent home on
anticoagulation as he had an isolated event that lasted less than 24 hours. I did discuss the importance of rhythm monitoring at home should he feel any palpitations or noticed any tachycardia he should notify us immediately for further evaluation.
He understood these instructions. I answered the remainder of his and his 's questions to their satisfaction and reviewed their discern instructions at length prior to them leaving.
Please note the majority of this dictation was created using voice recognition software. Please excuse any phonetic or grammatical errors as a result.
Discharge Plan
-
Patient Disposition: Home (Routine Discharge)
Discharge Diagnosis/Procedures: -Status post median sternotomy/coronary artery bypass graft x 5 (left internal thoracic artery to left anterior descending, saphenous vein graft to diagonal 1, saphenous vein graft to obtuse marginal 1, saphenous vein
graft to upper branch of obtuse marginal 2, saphenous vein graft to right PDA)/Endoscopic harvest/prep of bilateral lower extremity greater saphenous veins, by Dr. Garcia, 07/25/24
-Severe multivessel coronary artery disease
-Unstable angina
-History of CAD with prior PCI with drug-eluting stent to 2018
-Sinus tachycardia
-New right bundle branch block
-Left ventricular ejection fraction 60-65% per intraoperative transesophageal echocardiogram
-Trace - mild tricuspid regurgitation
-Hypertension
-Hyperlipidemia (statin intolerance, on Vascepa @ home)
-Type 2 diabetes mellitus, uncontrolled (A1C 10.2)
-Class 2 obesity (body mass index 35.4)
-Suspected obstructive sleep apnea
-Seasonal allergies
-History of elevated liver function tests
-Irritable bowel syndrome with diarrhea.
-Nocturia.
-Degenerative joint disease/osteoarthritis
-Status post right total knee arthroplasty, 05/2022
-Status post right knee meniscus repair, 06/16/14
-Status post left shoulder repair, 10/16/10
-Status post right ankle fracture repair
-Status post removal of right knee bursa, 1993
-Status post bilateral inguinal herniorrhaphy
-Status post umbilical herniorrhaphy
-Status post tonsillectomy
-Acute postoperative blood loss/Anemia (stable without blood transfusion)
-Acute postoperative thrombocytopenia (stable without active bleed)
-Acute postoperative transient new right bundle branch block- resolved
-Acute postoperative atelectasis
-Acute postoperative pulmonary insufficiency
-Acute postoperative hypovolemia with subsequent hypervolemia
Diet: Low Cholesterol, Low Sodium and Diabetic, Carb Controlled
Activity: No strenuous activity
Driving Restrictions: Not until seen by your Dr
Bathing Restrictions: OK to Shower
Other Services: Cardiac Rehab
Specialty Instructions: Weigh Daily- Call MD for wt gain/loss 3 lbs overnight/5 lbs in 1 week
Referrals:
CT Transitional Care Nurse [Outside] (The Cardiothoracic Transitional Care Nurse will call you to set up a visit in 1-2 days.)
[facility] [Outside]
(Cardiac Rehab Orientation appointment is on , Sep 01, 2024@ 09:30am.
The Cardiac Rehab gym is located on the first floor of the [facility].)
Jhoana Rodas DO [Family Provider] -
Frederick Garibay DO [Non-Admitting Privileges] - 09/05/24 9:20 am
Temo Garcia MD [Active] - 08/30/24 2:00 pm
Prescriptions:
New
(DME) OneTouch Verio test strips Strip
Qty: 120 0RF
Rx Instructions:
Pt on insulin, testing 4 times a day
(DME) lancets [Onetouch Delica Safety Lancet] 30 gauge Misc
Qty: 120 0RF
Rx Instructions:
Pt on insulin, testing 4 times a day
metformin 500 mg Tablet
500 mg PO BID@0800,1700 Qty: 60 0RF
Rx Instructions:
take twice a day
insulin aspart U-100 [Novolog FlexPen U-100 Insulin] 100 unit/mL (3 mL) Insulin Pen
10 unit SC AC Qty: 5 0RF
Rx Instructions:
Take 10 units before meals
insulin glargine [Basaglar KwikPen U-100 Insulin] 100 unit/mL (3 mL) Insulin Pen
20 unit SC HS Qty: 5 0RF
Rx Instructions:
Take 20 units at bedtime
(DME) pen needle, diabetic [BD Ultra-Fine Glory Pen Needle] 32 gauge x ' Needle
Qty: 200 0RF
Rx Instructions:
Pt taking insulin 4 times a day
furosemide 40 mg Tablet
40 mg PO DAILY 5 Days Qty: 5 0RF
acetaminophen 325 mg Tablet
650 mg PO Q4HPRN PRN (Reason: mild pain,headache,temp >101F ) Qty: 30 0RF
amiodarone 200 mg Tablet
200 mg PO BID 14 Days Qty: 28 0RF
clopidogrel 75 mg Tablet
75 mg PO DAILY Qty: 30 2RF
oxycodone 5 mg Tablet
5 mg PO Q4HPRN PRN (Reason: moderate pain) Qty: 30 0RF
metoprolol tartrate 25 mg Tablet
25 mg PO Q12 Qty: 60 2RF
potassium chloride 20 mEq tablet extended release
20 meq PO DAILY Qty: 5 0RF
Continued
cetirizine 10 MG tablet
10 mg PO DAILY PRN (Reason: allergies)
aspirin [Jason Chewable Aspirin] 81 MG tablet,chewable
81 mg PO DAILY
One Daily For Men 1 EACH tablet
1 ea PO DAILY@1200
ramipril 10 mg Capsule
10 mg PO BID
rosuvastatin 40 mg Tablet
40 mg PO DAILY
cholecalciferol (vitamin D3) [Vitamin D3] 50 mcg (2,000 unit) Capsule
100 mcg PO DAILY
icosapent ethyl [Vascepa] 1 gram Capsule
2 g PO BID
Jardiance 25 mg Tablet
25 mg PO DAILY
magnesium
2 cap PO BID
Discontinued
glimepiride 4 MG tablet
4 mg PO DAILY@1200
ibuprofen [Advil] 200 MG tablet
200 - 400 mg PO DAILYPRN PRN (Reason: pain)
metoprolol succinate 100 mg Tablet Extended Release 24 Hr
100 mg PO TID
amlodipine 10 mg Tablet
10 mg PO DAILY
Wegovy 0.25 mg/0.5 mL Pen Injector
0.25 mg SC MARTINEZ
Patient Comments:
Not started yet
metformin 500 MG tablet extended release 24 hr
500 mg PO QPM
Discharge Orders:
Discharge Patient (As Directed); Ordered 07/31/24
Ordered By: Eusebio Rudd
Care Plan Goals
Care Plan Goals:
Problem: Readiness for enhanced knowledge related to diagnosis and treatment plan
Goal: Understand your diagnosis and treatment plan needs, including medications if applicable.
Instructions: Know your diagnosis, underlying causes and treatment plan options, including medications if applicable. Consult with your health care team to learn about your diagnosis and treatment plan, including medications if applicable.
Discharge Date and Time
Print Language: TELUGU
--- NOTE | 2024-07-31 12:00 | PTCARENOTE ---
stairs completed w/ 2 RNs. pt discharged home, discharge instructions reviewed w/ patient and significant other. home meds reviewed. surgical dressings removed. IVs dc'd. tele dc'd. pt showered and dressed self independently. pt left via wheelchair
w/ all belongings.
== END 2024-07-31 11:15 | disposition home or self-care (01) | DRG 235 ==
LOC: CVICU 06:43
PROVIDERS: Anesthesiology; Nurse Practitioner; Physician Assistant Medical; ADMITTING PHYSICIAN Thoracic Surgery (Cardiothoracic Vascular Surgery); CONSULT PHYSICIAN Internal Medicine Critical Care Medicine; FAMILY PHYSICIAN Family Medicine
PROC: 021309W Bypass Coronary Artery, Four or More Arteries from Aorta with Autologous Venous Tissue, Open Approach (ICD-10-PCS; 2024-07-25)
PROC: 02100ZC Bypass Coronary Artery, One Artery from Thoracic Artery, Open Approach (ICD-10-PCS; 2024-07-25)
PROC: 06BQ4ZZ Excision of Left Saphenous Vein, Percutaneous Endoscopic Approach (ICD-10-PCS; 2024-07-25)
PROC: B24BZZ4 Ultrasonography of Heart with Aorta, Transesophageal (ICD-10-PCS; 2024-07-25)
PROC: 06BP4ZZ Excision of Right Saphenous Vein, Percutaneous Endoscopic Approach (ICD-10-PCS; 2024-07-25)
PROC: 5A1221Z Performance of Cardiac Output, Continuous (ICD-10-PCS; 2024-07-25)
DX: I25.110 Atherosclerotic heart disease of native coronary artery with unstable angina pectoris (principal); J95.1 Acute pulmonary insufficiency following thoracic surgery; D62 Acute posthemorrhagic anemia; R17 Unspecified jaundice; J98.11 Atelectasis; D69.59 Other secondary thrombocytopenia; I45.10 Unspecified right bundle-branch block; Y83.2 Surgical operation with anastomosis, bypass or graft as the cause of abnormal reaction of the patient, or of later complication, without mention of misadventure at the time of the procedure; E11.65 Type 2 diabetes mellitus with hyperglycemia; E66.812 Obesity, class 2; K58.0 Irritable bowel syndrome with diarrhea; R74.01 Elevation of levels of liver transaminase levels; I10 Essential (primary) hypertension; E78.00 Pure hypercholesterolemia, unspecified; E86.1 Hypovolemia; E87.70 Fluid overload, unspecified; I07.1 Rheumatic tricuspid insufficiency; G47.33 Obstructive sleep apnea (adult) (pediatric); J30.2 Other seasonal allergic rhinitis; I48.91 Unspecified atrial fibrillation; R44.1 Visual hallucinations; Z68.35 Body mass index [BMI] 35.0-35.9, adult; Z79.82 Long term (current) use of aspirin; Z79.84 Long term (current) use of oral hypoglycemic drugs; Z79.899 Other long term (current) drug therapy; Z82.49 Family history of ischemic heart disease and other diseases of the circulatory system; Z95.5 Presence of coronary angioplasty implant and graft; Z96.651 Presence of right artificial knee joint
CPT/HCPCS: 94727; 94729; 36415; 71045; 71046; 80048; 80053; 80061; 81003; 81015; 82248; 82330; 82565; 82805; 82810; 82947; 82962; 83036; 83721; 83735; 84132; 84302; 84520; 85014; 85018; 85025; 85027; 85049; 85610; 85730; 86850; 86900; 86901; 86920; 87070; 93005; 93312; 93320; 93325; 93880; 94002; 94010; 94640; 97110; 97163; 97166; 97530; C1713

== ENCOUNTER 2024-09-02 15:15 | Outpatient (RCR) | payer MEDICARE, SELFPAY ==
[2024-09-01 10:27] LABS: Glucose - Point of Care 315 mg/dl (70-99)
[2024-09-02 15:25] LABS: Glucose - Point of Care 140 mg/dl (70-99)
[2024-09-02 16:10] LABS: Glucose - Point of Care 92 mg/dl (70-99)
[2024-09-02 16:21] LABS: Glucose - Point of Care 111 mg/dl (70-99)
== END 2024-09-02 23:59 | disposition home or self-care (01) ==
LOC: CRHB 15:15
PROVIDERS: ATTENDING PHYSICIAN Internal Medicine Cardiovascular Disease; FAMILY PHYSICIAN Family Medicine
DX: I25.10 Atherosclerotic heart disease of native coronary artery without angina pectoris (principal); Z95.1 Presence of aortocoronary bypass graft
CPT/HCPCS: 82962; G0422; G0423

== ENCOUNTER 2024-10-03 10:04 | Outpatient (RCR) | payer MEDICARE, SELFPAY ==
[2024-09-05 11:14] LABS: Glucose - Point of Care 199 mg/dl (70-99)
[2024-09-05 12:04] LABS: Glucose - Point of Care 150 mg/dl (70-99)
[2024-09-07 09:30] LABS: Glucose - Point of Care 130 mg/dl (70-99)
[2024-09-07 10:24] LABS: Glucose - Point of Care 122 mg/dl (70-99)
[2024-09-09 09:24] LABS: Glucose - Point of Care 165 mg/dl (70-99)
[2024-09-09 10:20] LABS: Glucose - Point of Care 127 mg/dl (70-99)
[2024-09-12 09:26] LABS: Glucose - Point of Care 163 mg/dl (70-99)
[2024-09-12 10:21] LABS: Glucose - Point of Care 175 mg/dl (70-99)
[2024-09-14 09:24] LABS: Glucose - Point of Care 188 mg/dl (70-99)
[2024-09-14 10:17] LABS: Glucose - Point of Care 141 mg/dl (70-99)
[2024-09-16 09:26] LABS: Glucose - Point of Care 153 mg/dl (70-99)
[2024-09-16 10:31] LABS: Glucose - Point of Care 138 mg/dl (70-99)
[2024-09-19 09:50] LABS: Glucose - Point of Care 134 mg/dl (70-99)
[2024-09-19 10:25] LABS: Glucose - Point of Care 124 mg/dl (70-99)
[2024-09-28 10:54] LABS: Glucose - Point of Care 208 mg/dl (70-99)
== END 2024-10-03 23:59 | disposition home or self-care (01) ==
LOC: CRHB 10:04
PROVIDERS: ATTENDING PHYSICIAN Internal Medicine Cardiovascular Disease; FAMILY PHYSICIAN Family Medicine
DX: I25.10 Atherosclerotic heart disease of native coronary artery without angina pectoris (principal); Z95.1 Presence of aortocoronary bypass graft
CPT/HCPCS: 82962; G0422; G0423

== ENCOUNTER 2024-10-28 10:40 | Outpatient (RCR) | payer MEDICARE, SELFPAY ==
[2024-10-19 09:59] LABS: Glucose - Point of Care 192 mg/dl (70-99)
== END 2024-10-28 23:59 | disposition home or self-care (01) ==
LOC: CRHB 10:40
PROVIDERS: ATTENDING PHYSICIAN Internal Medicine Cardiovascular Disease; FAMILY PHYSICIAN Family Medicine
DX: I25.10 Atherosclerotic heart disease of native coronary artery without angina pectoris (principal); Z95.1 Presence of aortocoronary bypass graft
CPT/HCPCS: 82962; G0422; G0423

== ENCOUNTER 2024-11-23 09:35 | Outpatient (RCR) | payer MEDICARE, SELFPAY | END 2024-11-23 15:59 | disposition home or self-care (01) | LOC: CRHB 09:35 | PROVIDERS: ATTENDING PHYSICIAN Internal Medicine Cardiovascular Disease; FAMILY PHYSICIAN Family Medicine | DX: I25.10 Atherosclerotic heart disease of native coronary artery without angina pectoris (principal); Z95.1 Presence of aortocoronary bypass graft | CPT/HCPCS: G0422; G0423 ==